=== PATIENT | female | born 1935 | race Caucasian/White ===

== ENCOUNTER 2018-06-21 05:59 | Inpatient (IN) | payer MEDICARE ==
[2018-06-21] MEDS ORDERED: Midazolam HCl 2 mg/2 ml Vial ONE (06:36)
[2018-06-21] MEDS ORDERED: Fentanyl 100 MCG/2 ML VIAL ONE (06:37)
[2018-06-21] MEDS ORDERED: Lidocaine 1% (PF) 30 ML VIAL ONE (06:42)
[2018-06-21 06:59] LABS: #Eosinphils 0.1 thou/uL (0.0-0.7); #Lymphocytes 1.9 thou/uL (1.20-3.40); #Monocytes 0.5 thou/uL (0.11-0.59); #Neutrophils 3.8 thou/uL (1.40-6.50); %Basophils 0.3 % (0.0-1.0); %Eosinophils 1.9 % (0.0-10.0); %Lymphocytes 29.3 % (21.0-51.0); %Monocytes 7.6 % (0.0-10.0); %Neutrophils 60.9 % (42.0-75.0); Hemoglobin 11.8 g/dL (12.0-16.0); Mean Corpuscular HGB CONC 33.5 g/dL (32.0-36.0); Mean Corpuscular Hemoglobin 29.4 pg (27.0-31.0); Mean Corpuscular Volume 87.9 fL (78.0-98.0); Mean Platelet Volume 8.2 fL (7.4-10.4); Platelet Count 155 thou/uL (130-400); RBC Distribution Width 12.7 % (11.5-14.5); Red Blood Cell (RBC) Count 4.01 mill/uL (4.20-5.40); White Blood Cell (WBC) Count 6.3 thou/uL (4.8-10.8)
[2018-06-21] MEDS ORDERED: Heparin 10,000 UNITS/1 ML VIAL ONE (07:15)
[2018-06-21 07:18] LABS: ALT (SGPT) 8 U/L (8-55); AST (SGOT) 14 U/L (5-34); Albumin 4.2 g/dL (3.4-4.8); Alkaline Phosphatase 50 U/L (40-150); Anion Gap 11 mmol/L (10-20); BUN (Urea Nitrogen) 18 mg/dL (9.8-20.1); Bilirubin, Total 1.9 mg/dL (0.2-1.2); Calc. Creatinine Clearance 42 mL/min (70-130); Calcium 9.6 mg/dL (7.8-10.44); Carbon Dioxide 21 mmol/L (23-31); Cardiac Risk 4.5 (Less than 4.5); Chloride 108 mmol/L (98-107); Cholesterol 200 mg/dl (< 200 Desired); Estimated GFR-MDRD 44; Globulin 2.8 g/dL (2.4-3.5); Glucose 131 mg/dL (83-110); HDL Cholesterol 44 mg/dL (>60 Neg Risk); LDL Cholesterol, Calculated 130 mg/dL; Potassium 4.1 mmol/L (3.5-5.1); Sodium 136 mmol/L (136-145); Triglycerides 131 mg/dL (Less than 150)
[2018-06-21] MEDS ORDERED: Protamine Sulfate 50 MG/5 ML VIAL ONE (08:03)
[2018-06-21] MEDS ORDERED: Acetaminophen/Codeine 30-300mg Tablet PO PRN ×2 (08:35)
[2018-06-21] MEDS ORDERED: Nitroglycerin 0.4 MG TAB (25 Tab Bottle) SL PRN (08:35)
[2018-06-21] MEDS ORDERED: traMADol HCl 50 MG TAB PO PRN (08:35)
[2018-06-21] MEDS ORDERED: Sodium Chloride 0.9% 200 ML IV SCH (08:45)
[2018-06-21] MEDS ORDERED: Aspirin 81 mg Enteric Coated Tablet PO SCH (09:00)
[2018-06-21] MEDS ORDERED: Iopamidol 370 76% 100 ML VIAL ONE (09:33)
[2018-06-21] MEDS ORDERED: Ondansetron HCl/PF 4 MG/2 ML Vial IVP PRN (12:41)
[2018-06-21] MEDS ORDERED: Ondansetron ODT 4 MG TAB PO PRN (12:41)
[2018-06-21] MEDS ORDERED: Diabetic Tussin 200 MG/10 ML UDCUP PO PRN (12:41)
[2018-06-21] MEDS ORDERED: Artificial Tears 18 DROP/0.9 ML EA EYE PRN (12:41)
[2018-06-21] MEDS ORDERED: Eucerin (Mineral Oil/Petrolatum,White) 30 gm Jar TOP PRN (12:41)
[2018-06-21] MEDS ORDERED: Loperamide HCl 2 MG CAP PO PRN (12:41)
[2018-06-21] MEDS ORDERED: Milk Of Magnesia 30 ML UDCUP PO PRN (12:41)
[2018-06-21] MEDS ORDERED: Mag-Al 1200 mg/1200 mg/30 ML UDCUP PO PRN (12:41)
[2018-06-21] MEDS ORDERED: HumaLOG 300 UNITS/3 ML VIAL SC PRN ×2 (12:41)
[2018-06-21] MEDS ORDERED: Sodium Chloride 0.65% Nasal 44 ML BOT EA NARE PRN (12:41)
[2018-06-21] MEDS ORDERED: Loratadine 10 MG TAB PO PRN (12:41)
[2018-06-21] MEDS ORDERED: hydrALAZINE 20 MG/ML VIAL SLOW IVP PRN (12:41)
[2018-06-21] MEDS ORDERED: Dextrose 5% in Water 1,000 ML IV PRN (12:41)
[2018-06-21] MEDS ORDERED: Chloraseptic Spray 180 ml Bottle PO PRN (12:41)
[2018-06-21] MEDS ORDERED: Acetaminophen 325 MG TAB PO PRN (12:41)
[2018-06-21] MEDS ORDERED: Temazepam 15 MG CAP PO PRN (12:41)
[2018-06-21] MEDS ORDERED: Communication Order-Pharmacy FS SCH (12:41)
[2018-06-21] MEDS ORDERED: Dextrose 50% Abboject 50 ML SYRINGE SLOW IVP PRN (12:41)
[2018-06-21] MEDS ORDERED: Senokot 8.6 MG TAB PO PRN (12:41)
[2018-06-21] MEDS ORDERED: Lorazepam 1 MG TAB PO PRN (12:41)
--- NOTE | 2018-06-21 12:50 | PDOC.PN ---
- Subjective Encounter Start Date: 06/21/18 Encounter Start Time: 13:00 -: old records requested/rev pt had cardiac cath earlier today, found with 3 vessel cad, now plan for CABG, pt is admitted in hospital, she has no chest pain now, Patient seen and examined. we are consulted for medical management - Objective Resuscitation Status: Resuscitation Status FULL:Full Resuscitation MAR Reviewed: Yes Vital Signs & Weight: Weight Weight 155 lb I&O: 06/20/18 06/21/18 06/22/18 06:59 06:59 06:59 Intake Total 250 Output Total 400 Balance -150 Result Diagrams: 06/21/18 06:45 06/21/18 06:45 Additional Labs: Accuchecks 06/21/18 06:47 POC Glucose 118 H EKG Reviewed by me: Yes Phys Exam - Physical Examination Constitutional: NAD HEENT: PERRLA, moist MMs, sclera anicteric Neck: no JVD, supple Respiratory: no wheezing, no rales, no rhonchi Cardiovascular: irregular SM+ Gastrointestinal: soft, non-tender, no distention, positive bowel sounds Musculoskeletal: no edema, pulses present Neurological: non-focal, normal sensation, moves all 4 limbs Psychiatric: normal affect, A&O x 3 Skin: no rash, normal turgor Dx/Plan (1) 3-vessel CAD Status: Acute Comment: cardiovascular surgery consulted and planned for CABG (2) Anemia, normocytic normochromic Code(s): D64.9 - ANEMIA, UNSPECIFIED Status: Chronic (3) Atrial fibrillation Code(s): I48.91 - UNSPECIFIED ATRIAL FIBRILLATION Status: Chronic Qualifiers: Atrial fibrillation type: chronic Qualified Code(s): I48.2 - Chronic atrial fibrillation Comment: Rate controlled, she was on Elliquis, that is on hold for anticipated CABG (4) Chronic anticoagulation Code(s): Z79.01 - PCAT INSTRUCTOR (CURRENT) USE OF ANTICOAGULANTS Status: Chronic Comment: Currently on hold for anticipated surgery (5) Diabetes type 2, controlled Code(s): E11.9 - TYPE 2 DIABETES MELLITUS WITHOUT COMPLICATIONS Status: Chronic Comment: will start her home dose of insulin and give 1800 kcal ADA diet, hyperglycemia protocol (6) Dyslipidemia Code(s): E78.5 - HYPERLIPIDEMIA, UNSPECIFIED Status: Chronic (7) H/O sick sinus syndrome Code(s): Z86.79 - PERSONAL HISTORY OF OTHER DISEASES OF THE CIRCULATORY SYSTEM Status: Chronic (8) Hypertension Code(s): I10 - ESSENTIAL (PRIMARY) HYPERTENSION Status: Chronic Comment: will resume her home meds (9) H/O: CVA (cerebrovascular accident) Code(s): Z86.73 - PRSNL HX OF TIA (TIA), AND CEREB INFRC W/O RESID DEFICITS Status: Chronic - Plan cont current plan of care * code status- pt is full code * CABG when feasible will defer to CT surgery * currently on optimum medical therapy for CAD * home medication reconciled * medication reviewed as below * symptomatic treatment * will repeat labs tomorrow * check UA. * chest xray * hyperglycemia protocol treatment Review of Systems - Review of Systems Eyes: negative: Pain, Vision Change, Conjunctivae Inflammation, Eyelid Inflammation, Redness, Other ENT: negative: Ear Pain, Ear Discharge, Nose Pain, Nose Discharge, Nose Congestion, Mouth Pain, Mouth Swelling, Throat Pain, Throat Swelling, Other Respiratory: negative: Cough, Dry, Shortness of Breath, Hemoptysis, SOB with Excertion, Pleuritic Pain, Sputum, Wheezing Cardiovascular: negative: chest pain, palpitations, orthopnea, paroxysmal nocturnal dyspnea, edema, light headedness, other Gastrointestinal: negative: Nausea, Vomiting, Abdominal Pain, Diarrhea, Constipation, Melena, Hematochezia, Other Genitourinary: negative: Dysuria, Frequency, Incontinence, Hematuria, Retention , Other Musculoskeletal: negative: Neck Pain, Shoulder Pain, Arm Pain, Back Pain, Hand Pain, Leg Pain, Foot Pain, Other Skin: negative: Rash, Lesions, Dangelo, Bruising, Other - Medications/Allergies Allergies/Adverse Reactions: Allergies Allergy/AdvReac Type Severity Reaction Status Date / Time codeine AdvReac Severe Nausea Verified 06/17/18 11:41 Medications: Current Medications Acetaminophen (Tylenol) 650 mg PO Q4H PRN PRN Reason: Headache/Fever or Mild Pain Acetaminophen/Codeine Phosphate (Tylenol #3) 1 tab PO Q4H PRN PRN Reason: Mild Pain (1-3) Acetaminophen/Codeine Phosphate (Tylenol #3) 2 tab PO Q4H PRN PRN Reason: Moderate Pain (4-6) Al Hydroxide/Mg Hydroxide (Maalox) 15 ml PO Q4H PRN PRN Reason: Heartburn or Indigestion Artificial Tears (Tears Naturale) 0 drop EA EYE PRN PRN PRN Reason: Dry Eyes Aspirin (Ecotrin) 81 mg PO DAILY [facility] Cefazolin Sodium (Cabg-Ancef) 2 gm SLOW IVP ONE [facility] Dextrose/Water (Dextrose 50%) 25 gm SLOW IVP PRN PRN PRN Reason: Hypoglycemia Famotidine (Pepcid) 20 mg PO BID [facility] Glucagon (Glucagon) 1 mg IM PRN PRN PRN Reason: Hypoglycemia Guaifenesin (Robitussin Sf) 200 mg PO Q4H PRN PRN Reason: Cough Hydralazine HCl (Apresoline) 10 mg SLOW IVP Q4H PRN PRN Reason: Systolic BP > 180 Sodium Chloride (Normal Saline 0.9%) 1,000 mls @ 125 mls/hr IV .Q8H [facility] Stop: 06/21/18 16:45 Sodium Chloride (Normal Saline 0.9%) 200 mls @ 0 mls/hr IV ONE [facility] Stop: 06/22/18 08:46 Dextrose/Water (D5w) 1,000 mls @ 0 mls/hr IV .Q0M PRN PRN Reason: Hypoglycemia Insulin Human Isoph/Insulin Regular (Humulin 70/30) units SC HS [facility] Insulin Human Isoph/Insulin Regular (Humulin 70/30) units SC DAILY [facility] Insulin Human Lispro (Humalog) 0 units SC .MODERATE SLIDING SC PRN PRN Reason: Moderate Correctional Scale Insulin Human Lispro (Humalog) 0 units SC .BEDTIME SLIDING SC PRN PRN Reason: Bedtime Correctional Scale Loperamide HCl (Imodium) 2 mg PO PRN PRN PRN Reason: Diarrhea/Loose Stools Loratadine (Claritin) 10 mg PO DAILYPRN PRN PRN Reason: Sinus Symptoms Lorazepam (Ativan) 1 mg PO Q4H PRN PRN Reason: Anxiety/Agitation Magnesium Hydroxide (Milk Of Magnesium) 30 ml PO DAILYPRN PRN PRN Reason: Constipation Mineral Oil/White Petrolatum (Eucerin Cream) 0 gm TOP BIDPRN PRN PRN Reason: Dry Skin Miscellaneous Information (Communication Order-Pharmacy) 1 each FS ONE ONE Stop: 06/21/18 12:42 Nitroglycerin (Nitrostat) 0.4 mg SL Q5MIN PRN PRN Reason: Chest Pain Non-Formulary Medication (Losartan Potassium [Cozaar]) 50 mg PO DAILY [facility] Ondansetron HCl (Zofran Odt) 4 mg PO Q6H PRN PRN Reason: Nausea/Vomiting Ondansetron HCl (Zofran) 4 mg IVP Q6H PRN PRN Reason: Nausea/Vomiting Phenol (Chloraseptic Lula 180 Ml Bot) 0 ml PO PRN PRN PRN Reason: Sore Throat Senna (Senokot) 2 tab PO HSPRN PRN PRN Reason: Constipation Sodium Chloride ([place]ana Nasal Lula 0.65%) 0 ml EA NARE QIDPRN PRN PRN Reason: Nasal Congestion Temazepam (Restoril) 15 mg PO HSPRN PRN PRN Reason: Insomnia Tramadol HCl (Ultram) 50 mg PO Q6H PRN PRN Reason: Moderate Pain (4-6)
--- NOTE | 2018-06-21 14:33 | HP ---
CONTINUATION After her urinary tract infection had been treated for 2 days, she underwent placement of a single ch meghana pacemaker via the left subclavian approach on November 29, 2015. Also, during that admission, car otid Doppler revealed no significant stenosis. Brain MRI only showed microvascular changes. She was discharged on Eliquis. She also was found to be hypercholesterolemic during that admission, but pre viously had been placed on Lipitor and developed muscle aches and weakness where she could not even w alk. She then returned to the office on December 23, 2015 with scant drainage from the pacemaker incision. Eleazar paredes grew methicillin-sensitive Staphylococcus aureus. She then was admitted and started on IV Jeremy ephin and vancomycin. She continued to have persistent inflammatory changes and ultimately, decision was made to remove the pacemaker which was performed on December 31, 2015. The incision was left open and packed with iodoform gauze. Six days after the pacemaker was removed, she was returned to the cardiac landscaping and groundskeeping laborer and a new pacemake r was placed via the right subclavian approach. Tyrx absorbable antibiotic envelope was used. She w as discharged with a wound VAC over the left subclavian area. She was placed on Keflex. She then re turned on January 16, 2016, for closure of the left subclavian incision. Since that time, she has done fairly well. She was admitted in August 2016 with a stroke. She dec ided to only take the Eliquis 5 mg daily instead of twice a day and then had a stroke with right-side d weakness and left middle cerebral artery stroke. Also in the office on followup, it was found that she developed cough and lisinopril was stopped. She was placed on losartan and the cough resolved. There has been no difficulty in controlling her cholesterol. As noted above, she had muscle aches wi th Lipitor. She was placed on pravastatin 20 mg and developed muscle aches again with this She cont inued on Zetia 10 mg daily, but ultimately stopped that due to the cough. Also, Livalo was prescribe d; however, she did not get that due to the cost. When she was seen for followup on March 10, she stated she has had an episode of chest pain for 10 min utes. There was difficulty getting much more history than that. It was felt that she needed to unde rgo nuclear scanning which revealed distal anterior and apical ischemia. She therefore is coming for cardiac catheterization. Risks of catheterization were discussed including , myocardial infarc tion, dye reaction, vascular injury, CVA, transfusion, limb loss, renal loss, etc. Also, risk of int ervention with PTCA and stent placement were discussed including , myocardial infarction, emerge nt CABG, restenosis, stent thrombosis, vessel perforation, etc. With the need for chronic anticoagul ation due to her atrial fibrillation, only a bare-metal stent would be placed. PAST MEDICAL HISTORY: Diabetes, hypertension, hypercholesterolemia, noncompliance with medicines. MEDICATIONS: Losartan 50 mg daily, insulin, Eliquis 5 b.i.d. ALLERGIES: None. OPERATIONS: Cholecystectomy, hysterectomy. Pacemaker placement with ultimately removal of that and then placement of a new pacemaker on the right side. SOCIAL HISTORY: She does not smoke or drink. REVIEW OF SYSTEMS: Ten-point review of systems otherwise unremarkable. PHYSICAL EXAMINATION: VITAL SIGNS: Blood pressure 128/70, pulse of 80. HEENT: PERRL. NECK: Supple. CHEST: Clear. CARDIAC: S1 and S2 are normal, without any S3, S4, or murmurs. ABDOMEN: Normal bowel sounds without tenderness. EXTREMITIES: Revealed no clubbing, cyanosis or edema. NEUROLOGIC: Grossly intact. SKIN: Warm and dry. LABORATORY: Pending. IMPRESSION: 1. Abnormal stress scan with distal anterior and apical ischemia. 2. Hypertension. 3. Diabetes. 4. Hypercholesterolemia, intolerant of Lipitor and pravastatin. She cannot afford Zetia or Livalo. 5. Status post pacemaker placement. She developed infection of her left-sided pacemaker, this was r emoved and right-sided pacemaker was placed. 6. Chronic atrial fibrillation. 7. History of middle cerebral artery cerebrovascular accident. She was not compliant with Eliquis, only taking 5 mg daily. PLAN: The patient will undergo cardiac catheterization. The risks have been discussed and she agree s to proceed. Attempts will be made to see if we can get her on an assistance program for the inject able medications for her hypercholesterolemia.
--- NOTE | 2018-06-21 14:33 | HP ---
HISTORY: Marlena Lam is an 82-year-old white female that I initially evaluated in the hospital in November 2015. She had a several-year history of atrial fibrillation which was diagnosed in [place]. At some point, she had undergone cardiac catheterization prior to that and she told me that this was normal. She was placed on Coumadin. She did not recall being placed on any other medication for rate control. Then, several years prior to the November 2015 hospitalization, she decided to quit taking the Coumadin. When she was hospitalized in 11/2015, she was complaining of episodes of increasing lightheadedness and dizziness. She did not have any syncope. Two days prior to admission, she was extremely dizzy and weak, that continued until the morning of admission. On admission, her blood pressure was 209/91, pulse of 73. She denied any vertigo. She was admitted and monitored, was found to have significant bradycardia with heart rates in the upper 30s at times. Apparently, she felt very lightheaded and weak during those episodes. Also, during sleep, she would have 2.3 second pauses. She denied any chest discomfort or shortness of breath. She was found to have urinary tract infection and was given a dose of Rocephin, which then was changed to Cipro b.i.d. Echocardiogram during that admission revealed ejection fraction of 50-55 % with aortic valvular fibrosis, moderate to severe mitral regurgitation, mild tricuspid regurgitation and mild pulmonic insufficiency. After her urinary tract infection had been treated for 2 days, she underwent placement of a single chamber pacemaker via the left subclavian approach on November 29, 2015. Also, during that admission, carotid Doppler revealed no significant stenosis. Brain MRI only showed microvascular changes. She was discharged on Eliquis. She also was found to be hypercholesterolemic during that admission, but previously had been placed on Lipitor and developed muscle aches and weakness where she could not even walk. She then returned to the office on December 23, 2015 with scant drainage from the pacemaker incision. Culture grew methicillin-sensitive Staphylococcus aureus. She then was admitted and started on IV Rocephin and vancomycin. She continued to have persistent inflammatory changes and ultimately the decision was made to remove the pacemaker which was performed on December 31, 2015. The incision was left open and packed with iodoform gauze. Six days after the pacemaker was removed, she was returned to the cardiac rn labor and delivery and a new pacemaker was placed via the right subclavian approach. Tyrx absorbable antibiotic envelope was used. She was discharged with a wound VAC over the left subclavian area. She was placed on Keflex. She then returned on January 16, 2016, for closure of the left subclavian incision. Since that time, she has done fairly well. She was admitted in August 2016 with a stroke. She decided to only take the Eliquis 5 mg daily instead of twice a day and then had a stroke with right-sided weakness and left middle cerebral artery stroke. Also in the office on followup, it was found that she developed cough and lisinopril was stopped. She was placed on losartan and the cough resolved. There has been difficulty in controlling her cholesterol. As noted above, she had muscle aches with Lipitor. She was placed on pravastatin 20 mg and developed muscle aches again with this She continued on Zetia 10 mg daily, but ultimately stopped that due to the cough. Also, Livalo was prescribed; however, she did not get that due to the cost. When she was seen for followup on March 10, she stated she has had an episode of chest pain for 10 minutes. There was difficulty getting much more history than that. It was felt that she needed to undergo nuclear scanning which revealed distal anterior and apical ischemia. She therefore is coming for cardiac catheterization. Risks of catheterization were discussed including , myocardial infarction, dye reaction, vascular injury, CVA, transfusion, limb loss, renal loss, etc. Also, risk of intervention with PTCA and stent placement were discussed including , myocardial infarction, emergent CABG, restenosis, stent thrombosis, vessel perforation, etc. With the need for chronic anticoagulation due to her atrial fibrillation, only a bare-metal stent would be placed. PAST MEDICAL HISTORY: Diabetes, hypertension, hypercholesterolemia, noncompliance with medicines. MEDICATIONS: Losartan 50 mg daily, insulin, Eliquis 5 b.i.d. ALLERGIES: None. OPERATIONS: Cholecystectomy, hysterectomy. Pacemaker placement with ultimately removal of that and then placement of a new pacemaker on the right side. SOCIAL HISTORY: She does not smoke or drink. REVIEW OF SYSTEMS: Ten-point review of systems otherwise unremarkable. PHYSICAL EXAMINATION: VITAL SIGNS: Blood pressure 128/70, pulse of 80. HEENT: PERRL. NECK: Supple. CHEST: Clear. CARDIAC: S1 and S2 are normal, without any S3, S4, or murmurs. ABDOMEN: Normal bowel sounds without tenderness. EXTREMITIES: Revealed no clubbing, cyanosis or edema. NEUROLOGIC: Grossly intact. SKIN: Warm and dry. LABORATORY: Pending. IMPRESSION: 1. Abnormal stress scan with distal anterior and apical ischemia. 2. Hypertension. 3. Diabetes. 4. Hypercholesterolemia, intolerant of Lipitor and pravastatin. She cannot afford Zetia or Livalo. 5. Status post pacemaker placement. She developed infection of her left-sided pacemaker, this was removed and right-sided pacemaker was placed. 6. Chronic atrial fibrillation. 7. History of middle cerebral artery cerebrovascular accident. She was not compliant with Eliquis, only taking 5 mg daily. PLAN: The patient will undergo cardiac catheterization. The risks have been discussed and she agrees to proceed. Attempts will be made to see if we can get her on an assistance program for the injectable medications for her hypercholesterolemia. ELIA
--- NOTE | 2018-06-21 15:39 | RAD ---
SUPINE PORTABLE CHEST ONE VIEW: HISTORY: An 82-year-old female for preoperative open heart surgery evaluation. COMPARISON: 01/16/2016 FINDINGS: Monitor leads overly the chest. Right-sided transvenous pacemaker. No confluent pneumonia, overt ed antonina, or pleural effusion. IMPRESSION: Right-sided transvenous pacemaker. No acute intrathoracic disease. Stable from prior study. POS: OFF
[2018-06-21 16:33] VITALS: BMI 26.0
--- NOTE | 2018-06-21 18:23 | CON ---
DATE OF CONSULTATION: 06/20/2018 REQUESTING PHYSICIAN: Bryce Herrera MD PRIMARY CARE PHYSICIAN: Saranya Fernandez MD CHIEF COMPLAINT: Chest pain. HISTORY OF PRESENT ILLNESS: The patient is an 82-year-old woman with chronic atrial fibrillation and diabetes mellitus. The patient about 2 years ago underwent pacemaker implantation that was complica love by a device infection requiring removal and replacement, and in that same period of time, she had a left hemispheric stroke manifested as dysarthria and right-sided facial paresthesias while she has minimal residual from that stroke. She and her family say that she has never really quite been the same, but she has still been able to do the bulk of care for her who has dementia. Other fam jose c members pitch in with a lot of the grocery shopping and major chores, but she is able to keep up with the physical demands of her 's care. Over the last perhaps 3 or 4 months, she has notice d that she gets tired more easily and gets short of breath. When this happens, she occasionally has some chest discomfort that radiates to her back associated with this. Over the last month, she has h ad several episodes of chest pain going to her back at rest. Stress testing showed anteroapical isch emia and cardiac catheterization today shows three-vessel coronary disease with essentially normal LV function. PAST MEDICAL HISTORY: Significant for hypertension; chronic atrial fibrillation that has been an iss ue since the ; diabetes mellitus, she says that she has been on insulin for several years. PAST SURGICAL HISTORY: She has had a cholecystectomy and a hysterectomy. HOME MEDICATIONS: Losartan 50 mg a day; Eliquis 5 mg b.i.d., which has been on hold now for 4 days; NPH insulin 20 units in the morning and 10 in the evening. A baby aspirin has now been added to her regimen. ALLERGIES: She reports a so-called allergy to CODEINE. When questioned, she says that she gets quit e nauseated and somewhat confused. FAMILY HISTORY: Significant for diabetes in her father. Her mother had congestive heart failure and of a heart attack. She has a brother with diabetes and coronary disease. Her children have no major illnesses. REVIEW OF SYSTEMS: Notable for residual numbness in the right side of her lower lip following her st roke from about 2 years ago. She had some blurred vision associated with that stroke, but she has no t had any transient eye, speech, facial, or extremity symptoms consistent with TIA since then. The o nly dyspnea that she has had is what has recently been associated with exertion. She has no claudica tion symptoms. PHYSICAL EXAMINATION: GENERAL: She is a fairly fit-appearing woman who looks her stated age of just shy of 83 years. She has what appeared to be dentures. She stands 5 feet 6 inches. Weight is 155 pounds. She has no mariely thelasma. VITAL SIGNS: Her heart rate was paced 60, blood pressure 160/63. NECK: She has no JVD, no carotid bruits. CHEST: Clear to auscultation. CARDIOVASCULAR: She has a regular rate and rhythm. She has a pacemaker generator palpable in the [facility] upper chest and a well-healed surgical scar associated with it and from her old pacemaker site on the left side. ABDOMEN: Soft and nontender with no bruits. EXTREMITIES: She has palpable femoral pulses with no bruits. Palpable dorsalis pedis pulses. I was not able to readily appreciate posterior tibials. She has extensive spider-type varicosities over h er feet, ankles, and lower legs, but no obvious bulging varicosities. She has no clubbing, cyanosis, or edema. NEUROLOGIC: Grossly nonfocal on motor. LABORATORY DATA: White count of 6.3, hemoglobin 11.8, hematocrit 35.3, platelets 155,000. She has n ormal electrolytes with glucose of 131, BUN 18, creatinine 1.18. Bilirubin is 1.9, otherwise LFTs ar e normal. Calcium is 9.6, protein 7, albumin 4.2, triglycerides 131, cholesterol 200, LDL 130, HDL 4 4. She had a hemoglobin A1c in March of this year, was 5.9. Around the time of her stroke in 08/2016 , she had carotid studies that showed minimal plaque with right-sided internal carotid velocities of 94, 140, and 116 and common of 75, 83, and 73 for a ratio of 1.69; and left-sided internal carotid ve locities of 61, 62, and 85 with common of 75, 67, and 79 for a ratio of 1.07. Her cardiac catheteriz ation shows a right-dominant system with fairly well-developed posterolateral system with perhaps a 4 0%-50% lesion proximally at about the level of an atrial branch. She has a long 60% or so lesion in the distal right that does not appear to compromise the crux. She has some luminal irregularity in t he distal left main. She has a diagonal that runs in a ramus-type distribution that comes off at abo ut the level of the first septal manufacturing project manager that is a long lesion at 70%-80%. She has diffusely dise ased small second and third diagonals and a good quality fourth diagonal. Most of the LAD in its mid and distal portion is reasonably good sized and good quality, but she has about an 80% lesion a tana le bit beyond the first septal manufacturing project manager and a more modest lesion little beyond the small third diag onal. LVEF is around 60%. Aortic pressure was 127/44 with a mean of 78. LV pressure was 125/1 with an EDP of 6. IMPRESSION AND PLAN: Three-vessel coronary disease with good left ventricular function in an elderly diabetic woman with class 4 angina. While her LAD disease is probably not quite proximal enough for CABG to confer a survival advantage, the diffuse nature of her LAD disease clearly makes it suboptim al for PCI and the patient does not appear to be of much elevated risk for surgery and should get exc ellent symptomatic relief with surgical revascularization. I have explained this to her and have diana ked about some of the issues pertaining to her anticoagulation and potential for rebound hypercoagula bility, and I have offered to schedule her for tomorrow. She has some issues about her who i s going to help take care of him during her convalescence. She is going to talk things over with her family, and I will check back with her later today about final plans on scheduling surgery.
[2018-06-21] MEDS: Sodium Chloride 0.9% 1,000 ML IV SCH ×2 (18:26)
[2018-06-21 20:01] LABS: Bilirubin Negative (Negative); Blood, Urine Negative (Negative); Clarity CLOUDY (Clear); Glucose, Urine (Dipstick) Negative (Negative); Leukocyte Moderate (Negative); Nitrite Positive (Negative); Protein, Urine (Dipstick) Negative (Neg-Trace); Specific Gravity, Urine 1.023 (1.002-1.036); Urobilinogen 0.2 mg/dL (0.2-1.0); pH, Urine 5.5 (5.0-9.0)
[2018-06-21 20:02] LABS: Bacteria/HPF 2+ HPF (None Seen); Hyaline Casts/LPF 0-3 HYALINE CAST LPF (0-3 Hyaline); RBC/HPF 0-3 HPF (0-3); Squamous Epithelial None Seen HPF (0-3)
[2018-06-21] MEDS ORDERED: Atorvastatin Calcium 40 MG TAB PO SCH (21:00)
[2018-06-21] MEDS ORDERED: Insulin NPH/Reg Insulin Hm 300 UNITS/3 ML VIAL SC SCH (21:00)
[2018-06-21] MEDS ORDERED: Famotidine 20 MG TAB PO SCH (21:00)
[2018-06-22 05:53] LABS: #Eosinphils 0.1 thou/uL (0.0-0.7); #Lymphocytes 1.2 thou/uL (1.20-3.40); #Monocytes 0.3 thou/uL (0.11-0.59); #Neutrophils 2.9 thou/uL (1.40-6.50); %Basophils 0.9 % (0.0-1.0); %Eosinophils 2.7 % (0.0-10.0); %Lymphocytes 25.2 % (21.0-51.0); %Monocytes 7.4 % (0.0-10.0); %Neutrophils 63.8 % (42.0-75.0); Hemoglobin 11.1 g/dL (12.0-16.0); Mean Corpuscular HGB CONC 32.9 g/dL (32.0-36.0); Mean Corpuscular Hemoglobin 28.8 pg (27.0-31.0); Mean Corpuscular Volume 87.5 fL (78.0-98.0); Mean Platelet Volume 8.1 fL (7.4-10.4); Platelet Count 131 thou/uL (130-400); RBC Distribution Width 12.5 % (11.5-14.5); Red Blood Cell (RBC) Count 3.87 mill/uL (4.20-5.40); White Blood Cell (WBC) Count 4.6 thou/uL (4.8-10.8)
[2018-06-22 05:59] LABS: INR-International Normal Ratio 1.1; PTT 30.3 SEC (22.9-36.1); Prothrombin Time 14.1 SEC (12.0-14.7)
[2018-06-22 06:13] LABS: Anion Gap 11 mmol/L (10-20); BUN (Urea Nitrogen) 11 mg/dL (9.8-20.1); Calc. Creatinine Clearance 55 mL/min (70-130); Carbon Dioxide 21 mmol/L (23-31); Chloride 111 mmol/L (98-107); Estimated GFR-MDRD 59; Glucose 108 mg/dL (83-110); Potassium 3.9 mmol/L (3.5-5.1); Sodium 139 mmol/L (136-145)
[2018-06-22] MEDS: cefTRIAXone\\ROCEPHIN 1 GM in Sodium Chloride 0.9% 100 ML IVPB SCH (08:19)
[2018-06-22] MEDS ORDERED: Losartan 25 MG TAB PO SCH (09:00)
[2018-06-22] MEDS ORDERED: Insulin NPH/Reg Insulin Hm 300 UNITS/3 ML VIAL SC SCH (09:00)
[2018-06-22] MEDS ORDERED: Heparin 10,000 UNITS/1 ML VIAL 30,000 UNITS in Sodium Chloride 0.9% 1,000 ML FS SCH (09:00)
[2018-06-22] MEDS ORDERED: CEFAZOLIN/Water 2 GM/20 ML SYRINGE ONE (09:13)
[2018-06-22] MEDS ORDERED: Insulin Regular 300 UNITS/3 ML VIAL ONE (10:08)
[2018-06-22] MEDS ORDERED: Fentanyl 250 MCG/5 ML VIAL ONE (10:08)
[2018-06-22] MEDS ORDERED: Midazolam HCl 5 mg/5 ml Vial ONE (10:08)
--- NOTE | 2018-06-22 10:17 | PDOC.PN ---
- Subjective Encounter Start Date: 06/22/18 Encounter Start Time: 06:30 Patient seen and examined. No new complaints. No overnight events - Objective Resuscitation Status: Resuscitation Status FULL:Full Resuscitation MAR Reviewed: Yes Vital Signs & Weight: Vital Signs (12 hours) Temp Pulse Resp BP Pulse Ox 06/22/18 07:58 98.1 F 69 12 155/68 H 98 06/22/18 03:46 98.5 F 59 L 19 138/63 97 06/22/18 00:00 98.2 F 60 17 134/63 96 Weight Weight 154 lb 14.4 oz I&O: 06/21/18 06/22/18 06/23/18 06:59 06:59 06:59 Intake Total 310 Output Total 700 Balance -390 Result Diagrams: 06/22/18 05:12 06/22/18 05:12 Additional Labs: Accuchecks 06/22/18 06/21/18 05:40 20:21 POC Glucose 115 H 129 H EKG Reviewed by me: Yes (nsr) Phys Exam - Physical Examination Constitutional: NAD HEENT: PERRLA, moist MMs, sclera anicteric Neck: no JVD, supple Respiratory: no wheezing, no rales, no rhonchi Cardiovascular: RRR, no significant murmur, no rub Gastrointestinal: soft, non-tender, no distention, positive bowel sounds Musculoskeletal: no edema, pulses present Neurological: non-focal, normal sensation, moves all 4 limbs Lymphatic: no nodes Psychiatric: normal affect, A&O x 3 Skin: no rash, normal turgor Dx/Plan (1) 3-vessel CAD Status: Acute Comment: (2) Anemia, normocytic normochromic Code(s): D64.9 - ANEMIA, UNSPECIFIED Status: Chronic (3) Atrial fibrillation Code(s): I48.91 - UNSPECIFIED ATRIAL FIBRILLATION Status: Chronic Qualifiers: Atrial fibrillation type: chronic Qualified Code(s): I48.2 - Chronic atrial fibrillation Comment: Rate controlled, she was on Elliquis, that is on hold for anticipated CABG (4) Chronic anticoagulation Code(s): Z79.01 - DETENTION (CURRENT) USE OF ANTICOAGULANTS Status: Chronic Comment: Currently on hold for anticipated surgery (5) Diabetes type 2, controlled Code(s): E11.9 - TYPE 2 DIABETES MELLITUS WITHOUT COMPLICATIONS Status: Chronic Comment: will start her home dose of insulin and give 1800 kcal ADA diet, hyperglycemia protocol (6) Dyslipidemia Code(s): E78.5 - HYPERLIPIDEMIA, UNSPECIFIED Status: Chronic (7) H/O sick sinus syndrome Code(s): Z86.79 - PERSONAL HISTORY OF OTHER DISEASES OF THE CIRCULATORY SYSTEM Status: Chronic (8) Hypertension Code(s): I10 - ESSENTIAL (PRIMARY) HYPERTENSION Status: Chronic Comment: will resume her home meds (9) H/O: CVA (cerebrovascular accident) Code(s): Z86.73 - PRSNL HX OF TIA (TIA), AND CEREB INFRC W/O RESID DEFICITS Status: Chronic (10) UTI (urinary tract infection) Status: Acute - Plan cont current plan of care, continue antibiotics * medication reviewed as below * symptomatic treatment * today plan for CABG * after CABG continue post cabg treatment protocol * will send urine culture and start rocephin. Review of Systems - Review of Systems ENT: negative: Ear Pain, Ear Discharge, Nose Pain, Nose Discharge, Nose Congestion, Mouth Pain, Mouth Swelling, Throat Pain, Throat Swelling, Other Respiratory: negative: Cough, Dry, Shortness of Breath, Hemoptysis, SOB with Excertion, Pleuritic Pain, Sputum, Wheezing Cardiovascular: negative: chest pain, palpitations, orthopnea, paroxysmal nocturnal dyspnea, edema, light headedness, other Gastrointestinal: negative: Nausea, Vomiting, Abdominal Pain, Diarrhea, Constipation, Melena, Hematochezia, Other Genitourinary: negative: Dysuria, Frequency, Incontinence, Hematuria, Retention , Other Musculoskeletal: negative: Neck Pain, Shoulder Pain, Arm Pain, Back Pain, Hand Pain, Leg Pain, Foot Pain, Other Skin: negative: Rash, Lesions, Dangelo, Bruising, Other - Medications/Allergies Allergies/Adverse Reactions: Allergies Allergy/AdvReac Type Severity Reaction Status Date / Time codeine AdvReac Severe Nausea Verified 06/17/18 11:41 Medications: Current Medications Cefazolin Sodium (Cabg-Ancef) 2 gm SLOW IVP 0830 [facility] Stop: 06/22/18 21:00 Ceftriaxone Sodium 1 gm/ (Sodium Chloride) 100 mls @ 200 mls/hr IVPB Q24HR [facility]STIDES Last Admin: 06/22/18 08:19 Dose: 100 mls Heparin Sodium (Porcine) 30, (000 units/ Sodium Chloride) 1,003 mls @ 0 mls/hr FS WILLCALL ARISTIDES Losartan Potassium (Cozaar) 50 mg PO DAILY ARISTIDES Last Admin: 06/22/18 05:42 Dose: 50 mg Miscellaneous Information (Communication Order-Pharmacy) 1 each FS [facility] Stop: 06/22/18 12:00
[2018-06-22] MEDS ORDERED: Acetaminophen 325 MG TAB PO PRN (10:59)
[2018-06-22] MEDS ORDERED: Promethazine HCl 25 MG/ML VIAL IM PRN (10:59)
[2018-06-22] MEDS ORDERED: Guaifenesin DM 100-10/5 ML UDCUP PO PRN (10:59)
[2018-06-22] MEDS ORDERED: Dextrose 5% in Water 1,000 ML IV PRN ×2 (10:59→12:02)
[2018-06-22] MEDS ORDERED: Post-Op Insulin Drip Protocol IVPB ONE (10:59)
[2018-06-22] MEDS ORDERED: niCARdipine HCl 25 MG in Sodium Chloride 0.9% 250 ML 240 ML IVPB PRN (10:59)
[2018-06-22] MEDS ORDERED: Ondansetron HCl/PF 4 MG/2 ML Vial IVP PRN (10:59)
[2018-06-22] MEDS ORDERED: Fentanyl 100 MCG/2 ML VIAL SLOW IVP PRN ×2 (10:59)
[2018-06-22] MEDS ORDERED: Bisacodyl 10 MG SUPP PR PRN (10:59)
[2018-06-22] MEDS ORDERED: Norepinephrine 8 MG/0.9% NS 250 ML IVPB PRN (10:59)
[2018-06-22] MEDS ORDERED: Dextrose 50% Abboject 50 ML SYRINGE SLOW IVP PRN ×2 (10:59→12:02)
[2018-06-22] MEDS ORDERED: Potassium Chloride 20 MEQ/100 ML PREMIX BAG IVPB PRN (10:59)
[2018-06-22] MEDS ORDERED: hydrALAZINE 20 MG/ML VIAL SLOW IVP PRN (10:59)
[2018-06-22] MEDS ORDERED: Bisacodyl 5 MG TAB PO PRN (10:59)
[2018-06-22] MEDS ORDERED: HYDROcodone/Acetaminophen 5/325 mg Tablet PO PRN (10:59)
[2018-06-22] MEDS ORDERED: Mag-Al 1200 mg/1200 mg/30 ML UDCUP PO PRN (10:59)
[2018-06-22] MEDS ORDERED: Hetastarch 6% 500 ML 500 ML IVPB PRN (10:59)
[2018-06-22] MEDS ORDERED: Nitroglycerin 50 MG/250 ML BOT 250 ML IVPB PRN (10:59)
[2018-06-22] MEDS ORDERED: Albumin 5% 500 ML ONE (12:20)
[2018-06-22] MEDS ORDERED: Rocuronium Bromide 50 MG/5 ML VIAL ONE (12:29)
[2018-06-22] MEDS ORDERED: Phenylephrine HCL 10 MG/ML VIAL ONE (12:29)
[2018-06-22 15:43] LABS: Actual Bicarbonate (HCO3a) 21.5 mEq/L (22-28); Base Excess (BEa) -2.4 mEq/L (-2.0 to +3.0); CO2 Tension 33.4 mmHg (35.0-45.0); Calcium, Ionized 1.14 mmol/L (1.12-1.30); Carboxyhemoglobin (COHb) 0.7 gm% (0.0-3.0); Hemoglobin (Hb) 9.3 g/dL (12.0-16.0); O2 Tension (PaO2) 151.3 mmHg (> 60.0); Potassium - ABG Lab 3.83 mmol/L (3.70-5.30); pH, Arterial 7.43 (7.35-7.45)
[2018-06-22] MEDS: Sodium Chloride 0.9% 1,000 ML IV SCH (15:50)
[2018-06-22 15:56] LABS: Hemoglobin 8.9 g/dL (12.0-16.0); Mean Corpuscular HGB CONC 33.4 g/dL (32.0-36.0); Mean Corpuscular Hemoglobin 29.2 pg (27.0-31.0); Mean Corpuscular Volume 87.5 fL (78.0-98.0); Platelet Count 121 thou/uL (130-400); RBC Distribution Width 12.5 % (11.5-14.5); Red Blood Cell (RBC) Count 3.04 mill/uL (4.20-5.40); White Blood Cell (WBC) Count 17.4 thou/uL (4.8-10.8)
[2018-06-22 15:58] LABS: Puncture Site ALINE
[2018-06-22 16:05] LABS: INR-International Normal Ratio 1.5; PTT 33.9 SEC (22.9-36.1); Prothrombin Time 17.9 SEC (12.0-14.7)
[2018-06-22 16:10] LABS: Anion Gap 10 mmol/L (10-20); BUN (Urea Nitrogen) 10 mg/dL (9.8-20.1); Calc. Creatinine Clearance 62 mL/min (70-130); Calcium 8.3 mg/dL (7.8-10.44); Carbon Dioxide 21 mmol/L (23-31); Chloride 116 mmol/L (98-107); Estimated GFR-MDRD 69; Glucose 135 mg/dL (83-110); Potassium 3.9 mmol/L (3.5-5.1); Sodium 143 mmol/L (136-145)
--- NOTE | 2018-06-22 16:13 | RAD ---
SINGLE VIEW OF THE CHEST: Comparison: 06-21-18 History: Status post open heart surgery. FINDINGS: Single view of the chest shows an enlarged cardiomediastinal silhouette. There is an endotracheal tub e with its tip just above the ernestina. Patient is status post sternotomy. A left subclavian central ve nous catheter is seen with its tip in the superior vena cava. There is a pacemaker, unchanged in posi tion. A left chest tube and mediastinal drain is seen. There is a veil like opacity in the left thora x which likely represent a layering pleural effusion. No pneumothorax is seen. IMPRESSION: Slightly low lying endotracheal tube. This should be withdrawn approximately 1 cm. Code T POS: [facility]
[2018-06-22 16:27] LABS: #Eosinphils 0.1 thou/uL (0.0-0.7); #Lymphocytes 1.5 thou/uL (1.20-3.40); #Monocytes 1.1 thou/uL (0.11-0.59); #Neutrophils 14.7 thou/uL (1.40-6.50); %Basophils 0.2 % (0.0-1.0); %Eosinophils 0.3 % (0.0-10.0); %Lymphocytes 8.8 % (21.0-51.0); %Monocytes 6.4 % (0.0-10.0); %Neutrophils 84.3 % (42.0-75.0)
[2018-06-22] MEDS ORDERED: Aminocaproic Acid 5 GM/20 ML VIAL ONE (17:17)
[2018-06-22] MEDS ORDERED: Magnesium 5 GM/10 ML VIAL ONE (17:17)
[2018-06-22] MEDS ORDERED: Thrombin 5000 UNITS/5 ML VIAL ONE (17:17)
[2018-06-22] MEDS ORDERED: ePHEDrine/0.9% NaCl/PF SYRINGE 50 mg/10 ml ONE (17:17)
[2018-06-22] MEDS ORDERED: PROPOFOL 200 MG/20 ML VIAL ONE (17:17)
[2018-06-22] MEDS ORDERED: Lidocaine 2% PF 100 mg/5 ml Syringe ONE (17:17)
[2018-06-22] MEDS ORDERED: Heparin 30,000 units/30 ml VIAL ONE (17:17)
[2018-06-22] MEDS ORDERED: Calcium Chloride 1 GM/10 ML Abboject SYRINGE ONE (17:17)
[2018-06-22] MEDS ORDERED: Protamine Sulfate 250 MG/25 ML VIAL ONE (17:17)
[2018-06-22] MEDS ORDERED: Cardioplegic Soln 1,000 ML BAG ONE (17:17)
[2018-06-22] MEDS ORDERED: Potassium Chloride 60 MEQ/30 ML VIAL ONE (17:17)
[2018-06-22] MEDS ORDERED: Heparin 5,000 UNITS/ML VIAL ONE (17:17)
[2018-06-22] MEDS ORDERED: Sodium Bicarb 50 MEQ/50 ML VIAL ONE (17:17)
[2018-06-22] MEDS ORDERED: PHENYLEPHRINE-NS 100 MCG/ML 10 ML SYRINGE ONE (17:17)
[2018-06-22] MEDS ORDERED: Mannitol 12.5 GM/50 ML ONE (17:17)
[2018-06-22] MEDS ORDERED: Papaverine 60 MG/2 ML VIAL ONE (17:17)
[2018-06-22 19:26] LABS: Actual Bicarbonate (HCO3a) 17.2 mEq/L (22-28); Base Excess (BEa) -6.4 mEq/L (-2.0 to +3.0); CO2 Tension 27.3 mmHg (35.0-45.0); Calcium, Ionized 1.11 mmol/L (1.12-1.30); Carboxyhemoglobin (COHb) 0.8 gm% (0.0-3.0); Hemoglobin (Hb) 9.1 g/dL (12.0-16.0); O2 Tension (PaO2) 116.7 mmHg (> 60.0); Potassium - ABG Lab 4.22 mmol/L (3.70-5.30); pH, Arterial 7.42 (7.35-7.45)
[2018-06-22 19:27] LABS: Puncture Site ALINE
[2018-06-22 19:28] LABS: ALV-art Gradient 70.205 (0-20)
--- NOTE | 2018-06-22 19:29 | OP ---
DATE OF PROCEDURE: 06/22/2018 OPERATION PERFORMED: Coronary artery bypass grafting x4, left internal mammary artery to the LAD and reverse greater saphenous vein graft from the aorta to the PDA, from the aorta to the obtuse margina l and from the OM graft to the first diagonal, ligation of left atrial appendage. PREOPERATIVE DIAGNOSES: Coronary artery disease and chronic atrial fibrillation. POSTOPERATIVE DIAGNOSES: Coronary artery disease and chronic atrial fibrillation. SURGEON: Sravan Hare MD. BREEDER SERVICE TECHNICIAN: Zac Kam M.D. ANESTHESIA: General endotracheal anesthesia. INDICATIONS: The patient is an 82-year-old diabetic woman with chronic atrial fibrillation. She is over the last few months been having decreasing exercise tolerance and some dyspnea on exertion that occasionally associated with chest discomfort. More recently, she has had some episodes of more typi aletha angina even at rest. Stress testing suggested anteroapical ischemia and cardiac catheterization demonstrated a right dominant system with extensive disease in the LAD diagonal system that diseased with diminutive circumflex system, more modest disease in the distal right coronary and good LV funct ion. She is now taken to the operating room for surgical revascularization. FINDINGS: Pump time 110 minutes, crossclamp time initially was 48 minutes and a followup cross clamp time of 17 minutes to redo the LAD anastomosis for a total of 65 minutes of crossclamp time. The ma mmary was slightly small, but had excellent flow. The utilized saphenous vein was of good quality. The LAD was about 1.5 mm vessel where it was exposed in the epicardial fat. The diagonal is about 1 to 1.5 mm, the OM about 1 mm and the PDA about 1.5-2 mm, but fairly extensive disease proximally. NARRATIVE REPORT: After informed consent was obtained, the patient was taken to the operating room a nd placed in the supine position on the operating table. After induction of general anesthesia, the patient was placed in Trendelenburg and her left upper chest was prepped and draped in sterile fashio n. A triple-lumen central line kit was used to place a left subclavian line by the [employer] ue. All three ports easily aspirated and flushed. The line was secured. Ultrasonographic examinati on of the legs was undertaken. The vein in the left thigh appeared to be a dual system vein for much of the length of the thigh with fairly good size vein at the knee and in the proximal thigh, but to rather small veins in the mid-thigh. The vein in the right thigh appeared to be of better and more u niform size. The patient's torso, groins and lower extremities were then prepped and draped in steri le fashion. Greater saphenous vein was exposed just above the right knee and endoscopically harveste d from a groin to about a handbreadth below the knee where the vein branched into 2 relatively small branches. The vein was prepared for use of the graft and the harvest sites were closed in layers of subcutaneous and subcuticular Vicryl. A median sternotomy was performed. The right pleura were open ed fairly widely during performance of the sternotomy. Jose retractor was put into place to develo p the plane between the two pleural surfaces in the midline and then 3-0 Vicryl was used to repair th at in the right pleura. The left pleura was far too thin to make an extrapleural harvest of the mamm carlie feasible. The left pleura were opened widely to allow for harvesting of the left mammary from th e level of the xiphoid to the level of the subclavian vein. The patient was heparinized and the mamm carlie was ligated and divided distally. There was excellent flow through the mammary even though dista lly it was rather small. Papaverine solution was instilled intraluminally and the mammary bed inspec love for hemostasis. Retractors were placed the Singletary retractor. The pericardium was opened and mars upialized. They were palpated and was soft. A double concentric pursestring of 2-0 Ethibond was raquel sanna in the ascending aorta at the base of the arch and a single pursestring was placed in the right a trial appendage. Aortic and venous cannulae were inserted and secured by the pursestrings. Cardiopu lmonary bypass was instituted and the patient was systemically cooled. The heart was examined and th e vessels to be bypassed were identified. A longitudinal slit was made in the pericardium anterior t o the left phrenic nerve through which the mammary pedicle could be passed. The plane between the ao rta and the pulmonary artery was developed and aortic cross clamp was applied and cardioplegia was ad ministered through an aortic root needle. When arrest been achieved, attention was turned to the lef t atrial appendage. A 3-0 Prolene suture was run in two layers of horizontal mattress, stitches at t he base of the appendage to effect ligation of it and then attention was turned to the PDA. It was e xposed near the crux, but had to be followed out of 4-5 cm where it became soft enough vessel to open . It was opened with a Cocolalla blade and Buckner scissors and reverse greater saphenous vein was judy stomosed their end-to-side with running 6-0 Prolene suture. The anastomosis was tested by flushing c old cardioplegic down the graft. Attention was then turned to the obtuse marginal and to the first d iagonal which were each opened and grafted in a similar fashion. Attention was then turned to the LA D. The very distal LAD was a tiny vessel. The LAD was identified more proximally in its mid portion within the epicardial fat, it was opened and the mammary was anastomosed to it with running 7-0 Prol pepe. The mammary pedicle was tacked to the epicardium. The aortic crossclamp was replaced with part ial occluding clamp in the process of retrieving the OM graft to decide where on the aorta to make th e aortotomy for its proximal anastomosis. The mammary anastomosis avulsed control on the mammary ped icle was re-achieved with a bulldog and the partial occluding clamp was removed. Crossclamp was repl aced and cardioplegia administered. Arrest was achieved at around 500 mL of cardioplegia and an claire tional 250 mL after arrest was given and root needle placed back on suction. Upon inspecting the LAD anastomosis, it could be appreciated that the anastomosis itself did not avulsed, but rather the thong kylie per se tore into near the anastomosis. An 11 blade scalpel was used to take down that anastomos is. The LAD did not require any freshening. The mammary pedicle was pie crusted to get additional l ength and it was respatulated to get to fresh mammary and the anastomosis was redone and the mammary pedicle tacked back to the epicardium. The crossclamp was replaced with a partial occluding clamp an d aortotomy was made in the ascending aorta with a scalpel and punch. The PDA graft was anastomosed to the more proximal aortotomy and the OM graft to the more distal aortotomy. The partial occluding clamp was removed and a bulldog was placed on the OM graft proximally. A point on the OM graft was s elected to allow for excision of the small portion of the vein that was part of the diagonal graft. The OM graft was opened and the diagonal graft was anastomosed there with running 7-0 Prolene. The b ulldog was removed and the vein grafts deaired. The anastomoses were inspected for hemostasis. A le ft pleural drain and a posterior pericardial drain were brought out through separate incisions and se cured with suture. Right ventricular epicardial pacing wires were placed. The patient was then easi ly from cardiopulmonary bypass. The aortic and venous cannula removed and the pursestring secured. Protamine was administered when hemostasis was adequate. The mediastinal fat was tacked ba ck together to cover up the aorta and proximal portions of the vein graft. GPS was applied to the st ernal edges along with vancomycin paste. The sternum was reapproximated with #7 stainless steel wire s. The subcutaneous tissue was irrigated and additional GPS applied and the fascia closed over the w ires with Additional GPS was applied and the subcutaneous tissue was reapproximated. The skin was cl osed with 4-0 Vicryl subcuticular suture. The wounds were dressed. The patient taken to the intensi ve care unit in stable condition.
[2018-06-22 20:03] LABS: Hemoglobin 8.7 g/dL (12.0-16.0)
[2018-06-22] MEDS: Famotidine/PF 20 mg/2ml Vial SLOW IVP SCH (20:05)
[2018-06-22 20:15] LABS: Potassium 4.2 mmol/L (3.5-5.1)
[2018-06-23] MEDS: HYDROcodone/Acetaminophen 5/325 mg Tablet PO PRN ×2 (00:19→05:11)
[2018-06-23] MEDS: Sodium Chloride 0.9% 1,000 ML IV SCH ×3 (00:20→20:58)
[2018-06-23 04:41] LABS: #Lymphocytes 0.5 thou/uL (1.20-3.40); #Monocytes 0.7 thou/uL (0.11-0.59); #Neutrophils 9.4 thou/uL (1.40-6.50); %Basophils 0.2 % (0.0-1.0); %Eosinophils 0.2 % (0.0-10.0); %Lymphocytes 4.9 % (21.0-51.0); %Monocytes 6.4 % (0.0-10.0); %Neutrophils 88.4 % (42.0-75.0); Hemoglobin 8.2 g/dL (12.0-16.0); Mean Corpuscular Hemoglobin 29.4 pg (27.0-31.0); Mean Corpuscular Volume 89.1 fL (78.0-98.0); Mean Platelet Volume 8.6 fL (7.4-10.4); Platelet Count 113 thou/uL (130-400); Red Blood Cell (RBC) Count 2.78 mill/uL (4.20-5.40); White Blood Cell (WBC) Count 10.6 thou/uL (4.8-10.8)
[2018-06-23 05:16] LABS: Anion Gap 14 mmol/L (10-20); BUN (Urea Nitrogen) 12 mg/dL (9.8-20.1); Calc. Creatinine Clearance 54 mL/min (70-130); Calcium 8.7 mg/dL (7.8-10.44); Carbon Dioxide 18 mmol/L (23-31); Chloride 116 mmol/L (98-107); Estimated GFR-MDRD 58; Glucose 150 mg/dL (83-110); Potassium 4.7 mmol/L (3.5-5.1); Sodium 143 mmol/L (136-145)
[2018-06-23] MEDS ORDERED: Furosemide 40 MG/4 ML VIAL SLOW IVP SCH (07:00)
--- NOTE | 2018-06-23 08:33 | RAD ---
PORTABLE CHEST: Date: 06/23/18 HISTORY: Postop open heart surgery. COMPARISON: Prior day's exam. FINDINGS: Endotracheal tube has been removed. Midline and left-sided chest tubes remain in position. Left subcl ellen line is unchanged. Lungs remain clear of infiltrates. IMPRESSION: Interval removal of the endotracheal tube, otherwise stable exam. POS: [facility]
[2018-06-23] MEDS: cefTRIAXone\\ROCEPHIN 1 GM in Sodium Chloride 0.9% 100 ML IVPB SCH (09:24)
[2018-06-23] MEDS: Famotidine/PF 20 mg/2ml Vial SLOW IVP SCH ×2 (09:24→20:47)
--- NOTE | 2018-06-23 09:53 | PDOC.PN ---
- Subjective Encounter Start Date: 06/23/18 Encounter Start Time: 08:40 pt is getting 1 unit PRBC, she was feeling weak and lightheaded this morning daughter was present bedside chest tube in place - Objective Resuscitation Status: Resuscitation Status FULL:Full Resuscitation MAR Reviewed: Yes Vital Signs & Weight: Vital Signs (12 hours) Temp Pulse Resp BP Pulse Ox 06/23/18 09:30 97.6 F 69 16 147/80 H 100 06/23/18 08:15 97.7 F 71 16 128/71 100 06/23/18 08:00 97.8 F 69 18 126/63 100 Weight Weight 164 lb 14.492 oz Most Recent Monitor Data Heart Rate from ECG 71 NIBP 145/70 NIBP BP-Mean 95 Respiration from ECG 16 SpO2 100 I&O: 06/22/18 06/23/18 06/24/18 06:59 06:59 06:59 Intake Total 310 1795.6 590 Output Total 700 1847 65 Balance -390 -51.4 525 Result Diagrams: 06/23/18 04:20 06/23/18 04:20 Additional Labs: Accuchecks 06/23/18 06/23/18 06/23/18 06:07 04:25 02:35 POC Glucose 135 H 129 H 99 06/23/18 06/23/18 06/22/18 01:33 00:12 22:51 POC Glucose 113 H 139 H 163 H 06/22/18 06/22/18 06/22/18 21:31 19:58 14:41 POC Glucose 183 H 208 H 139 H 06/22/18 06/22/18 06/22/18 13:40 12:53 12:08 POC Glucose 180 H 139 H 156 H 06/22/18 10:43 POC Glucose 136 H Radiology Reviewed by me: Yes (chest xray reviewed) EKG Reviewed by me: Yes Phys Exam - Physical Examination Constitutional: NAD HEENT: PERRLA, moist MMs, sclera anicteric Neck: no JVD, supple Respiratory: no wheezing, no rales, no rhonchi surgical site with dressing, chest tube in place Cardiovascular: RRR, no significant murmur, no rub Gastrointestinal: soft, non-tender, no distention, positive bowel sounds sahu+ Musculoskeletal: no edema, pulses present Neurological: non-focal Lymphatic: no nodes Psychiatric: normal affect Skin: no rash, normal turgor Dx/Plan (1) 3-vessel CAD Status: Acute Comment: s/p cabgX 4 (2) Anemia, normocytic normochromic Code(s): D64.9 - ANEMIA, UNSPECIFIED Status: Chronic (3) Atrial fibrillation Code(s): I48.91 - UNSPECIFIED ATRIAL FIBRILLATION Status: Chronic Qualifiers: Atrial fibrillation type: chronic Qualified Code(s): I48.2 - Chronic atrial fibrillation Comment: Rate controlled, s/p left atrial appendage ligation with CABG (4) Chronic anticoagulation Code(s): Z79.01 - DIRECTOR OF RETAIL MERCHANDISING (CURRENT) USE OF ANTICOAGULANTS Status: Chronic Comment: Currently on hold due to cabg (5) Diabetes type 2, controlled Code(s): E11.9 - TYPE 2 DIABETES MELLITUS WITHOUT COMPLICATIONS Status: Chronic Comment: will start her home dose of insulin and give 1800 kcal ADA diet, hyperglycemia protocol (6) Dyslipidemia Code(s): E78.5 - HYPERLIPIDEMIA, UNSPECIFIED Status: Chronic (7) H/O sick sinus syndrome Code(s): Z86.79 - PERSONAL HISTORY OF OTHER DISEASES OF THE CIRCULATORY SYSTEM Status: Chronic (8) Hypertension Code(s): I10 - ESSENTIAL (PRIMARY) HYPERTENSION Status: Chronic Comment: will resume her home meds (9) H/O: CVA (cerebrovascular accident) Code(s): Z86.73 - PRSNL HX OF TIA (TIA), AND CEREB INFRC W/O RESID DEFICITS Status: Chronic - Plan cont current plan of care, plan discussed w/ family * continue PRBC as ordered * discussed with daughter bedside * continue CT surgery protocol treatment as per cardiology and CT surgeon * medication reviewed as below * symptomatic treatment. Review of Systems - Review of Systems Constitutional: weakness. negative: fever, chills, sweats, malaise, other Eyes: negative: Pain, Vision Change, Conjunctivae Inflammation, Eyelid Inflammation, Redness, Other ENT: negative: Ear Pain, Ear Discharge, Nose Pain, Nose Discharge, Nose Congestion, Mouth Pain, Mouth Swelling, Throat Pain, Throat Swelling, Other Respiratory: negative: Cough, Dry, Shortness of Breath, Hemoptysis, SOB with Excertion, Pleuritic Pain, Sputum, Wheezing Cardiovascular: light headedness. negative: chest pain, palpitations, orthopnea , paroxysmal nocturnal dyspnea, edema, other Gastrointestinal: negative: Nausea, Vomiting, Abdominal Pain, Diarrhea, Constipation, Melena, Hematochezia, Other Genitourinary: negative: Dysuria, Frequency, Incontinence, Hematuria, Retention , Other Musculoskeletal: negative: Neck Pain, Shoulder Pain, Arm Pain, Back Pain, Hand Pain, Leg Pain, Foot Pain, Other Skin: negative: Rash, Lesions, Dangelo, Bruising, Other - Medications/Allergies Allergies/Adverse Reactions: Allergies Allergy/AdvReac Type Severity Reaction Status Date / Time codeine AdvReac Severe Nausea Verified 06/17/18 11:41 Medications: Current Medications Acetaminophen (Tylenol) 650 mg PO Q6H PRN PRN Reason: Headache/Fever Or Mild Pain Hydrocodone Bitart/Acetaminophen (Carolina 5/325) 1 tab PO Q4H PRN PRN Reason: Moderate Pain (4-6) Hydrocodone Bitart/Acetaminophen ([place] 5/325) 2 tab PO Q4H PRN PRN Reason: Severe Pain (7-10) Last Admin: 06/23/18 05:11 Dose: 2 tab Al Hydroxide/Mg Hydroxide (Maalox) 30 ml PO Q4H PRN PRN Reason: Indigestion Albumin Human (Albumin 5%) 12.5 gm IVPB Q6H PRN PRN Reason: To Maintain SBP> 90 mmHG Stop: 06/23/18 11:00 Albumin Human (Albumin 5%) 25 gm IVPB Q6H PRN PRN Reason: To Maintain SBP > 90 mmHG Stop: 06/23/18 11:00 Last Admin: 06/22/18 16:59 Dose: 25 gm Albuterol/Ipratropium (Duoneb) 3 ml NEB [id number] PRN PRN Reason: SHORTNESS OF BREATH Aspirin (Aspirin Chewable) 81 mg PO DAILY [facility] Last Admin: 06/23/18 09:24 Dose: 81 mg Bisacodyl (Dulcolax) 10 mg PO Q12H PRN PRN Reason: Constipation Bisacodyl (Dulcolax) 10 mg IN Q12H PRN PRN Reason: Constipation Dextrose/Water (Dextrose 50%) 25 gm SLOW IVP PRN PRN PRN Reason: Hypoglycemia Dextrose/Water (Dextrose 50%) 25 gm SLOW IVP PRN PRN PRN Reason: PER HYPOGLYCEMIC PROTOCOL Famotidine (Pepcid) 20 mg SLOW IVP Q12HR [facility] Last Admin: 06/23/18 09:24 Dose: 20 mg Fentanyl (Sublimaze) 25 mcg SLOW IVP Q2H PRN PRN Reason: Moderate Pain (4-6) Stop: 06/24/18 10:07 Last Admin: 06/22/18 20:06 Dose: 25 mcg Fentanyl (Sublimaze) 50 mcg SLOW IVP Q2H PRN PRN Reason: Severe Pain (7-10) Stop: 06/24/18 10:07 Last Admin: 06/22/18 22:47 Dose: 50 mcg Furosemide (Lasix) 40 mg SLOW IVP NOW [facility] Stop: 06/23/18 15:00 Glucagon (Glucagon) 1 mg IM PRN PRN PRN Reason: Hypoglycemia Glucagon (Glucagon) 1 mg SC PRN PRN PRN Reason: PER HYPOGLYCEMIC PROTOCOL Guaifenesin/Dextromethorphan (Robitussin Dm) 15 ml PO Q4H PRN PRN Reason: Cough Hydralazine HCl (Apresoline) 10 mg SLOW IVP Q6H PRN PRN Reason: To Maintain SBP< 140mmHG Ceftriaxone Sodium 1 gm/ (Sodium Chloride) 100 mls @ 200 mls/hr IVPB Q24HR [facility] Last Admin: 06/23/18 09:24 Dose: 100 mls Dextrose/Water (D5w) 1,000 mls @ 0 mls/hr IV .Q0M PRN PRN Reason: Hypoglycemia Hetastarch/Sodium Chloride (Hespan) 500 mls @ 0 mls/hr IVPB PRN PRN PRN Reason: To Maintain SBP > 90mmHg Stop: 06/23/18 10:07 Norepinephrine Bitartrate (Levophed) 250 mls @ 0 mls/hr IVPB PRN PRN; Protocol PRN Reason: To maintain SBP > 90 mmHG Last Admin: 06/22/18 15:50 Dose: 250 mls Nicardipine HCl 25 mg/ Sodium (Chloride) 250 mls @ 0 mls/hr IVPB INF PRN; Protocol PRN Reason: To Maintain SBP< 140mmHG Nitroglycerin/Dextrose (Nitroglycerin 50 Mg/250 Ml Bot) 250 mls @ 0 mls/hr IVPB PRN PRN; Protocol PRN Reason: To Maintain SBP< 140mmHG Sodium Chloride (Normal Saline 0.9%) 1,000 mls @ 75 mls/hr IV .[id number] ARISTIDES Last Admin: 06/23/18 00:20 Dose: Not Given Insulin Human Regular 100 (units/ Sodium Chloride) 101 mls @ 0 mls/hr IVPB INF ARISTIDES; Protocol Last Admin: 06/22/18 20:06 Dose: 101 mls Dextrose/Water (D5w) 1,000 mls @ 0 mls/hr IV INF PRN PRN Reason: PRN HYPOGLYCEMIC PROTOCOL Insulin Human Regular (Humulin R) 0 units SC .AGGRESSIVE SLIDING PRN PRN Reason: Aggressive Sliding Scale Ondansetron HCl (Zofran) 4 mg IVP Q6H PRN PRN Reason: Nausea/Vomiting Last Admin: 06/23/18 00:19 Dose: 4 mg Potassium Chloride (Kcl) 20 meq IVPB PRN PRN PRN Reason: K level </= 4.0 Last Admin: 06/22/18 16:49 Dose: 20 meq Promethazine HCl (Phenergan) 6.25 mg IM Q4H PRN PRN Reason: Nausea/Vomiting
[2018-06-23] MEDS: Insulin Regular 300 UNITS/3 ML VIAL SC PRN (11:49)
[2018-06-23] MEDS: Ketorolac Tromethamine 30 MG/ML VIAL IVP PRN (11:56)
[2018-06-24] MEDS ORDERED: Ketorolac Tromethamine 30 MG/ML VIAL ONE (07:30)
[2018-06-24] MEDS ORDERED: Temazepam 15 MG CAP PO PRN (11:24)
[2018-06-24] MEDS ORDERED: Diabetic Tussin 200 MG/10 ML UDCUP PO PRN (11:24)
[2018-06-24] MEDS ORDERED: Loratadine 10 MG TAB PO PRN (11:24)
[2018-06-24] MEDS ORDERED: Ondansetron ODT 4 MG TAB PO PRN (11:24)
[2018-06-24] MEDS ORDERED: Loperamide HCl 2 MG CAP PO PRN (11:24)
[2018-06-24] MEDS ORDERED: Eucerin (Mineral Oil/Petrolatum,White) 30 gm Jar TOP PRN (11:24)
[2018-06-24] MEDS ORDERED: Chloraseptic Spray 180 ml Bottle PO PRN (11:24)
[2018-06-24] MEDS ORDERED: Sodium Chloride 0.65% Nasal 44 ML BOT EA NARE PRN (11:24)
[2018-06-24] MEDS ORDERED: Artificial Tears 18 DROP/0.9 ML EA EYE PRN (11:24)
[2018-06-24] MEDS ORDERED: Milk Of Magnesia 30 ML UDCUP PO PRN (11:24)
[2018-06-24] MEDS: cefTRIAXone\\ROCEPHIN 1 GM in Sodium Chloride 0.9% 100 ML IVPB SCH (12:17)
[2018-06-24] MEDS: Famotidine/PF 20 mg/2ml Vial SLOW IVP SCH (12:18)
[2018-06-24 12:45] LABS: Anion Gap 12 mmol/L (10-20); BUN (Urea Nitrogen) 17 mg/dL (9.8-20.1); Calc. Creatinine Clearance 43 mL/min (70-130); Calcium 8.5 mg/dL (7.8-10.44); Carbon Dioxide 21 mmol/L (23-31); Chloride 110 mmol/L (98-107); Estimated GFR-MDRD 42; Potassium 4.4 mmol/L (3.5-5.1); Sodium 139 mmol/L (136-145)
[2018-06-24 13:18] LABS: Glucose 167 mg/dL (83-110)
--- NOTE | 2018-06-24 14:41 | PDOC.PN ---
- Subjective Encounter Start Date: 06/24/18 Encounter Start Time: 07:40 Patient seen and examined. No new complaints. No overnight events today feeling better, had good sleep no fever today chest tube removed, sahu out - Objective Resuscitation Status: Resuscitation Status FULL:Full Resuscitation MAR Reviewed: Yes Vital Signs & Weight: Vital Signs (12 hours) Pulse Ox 06/24/18 08:00 96 Weight Weight 164 lb 14.492 oz Most Recent Monitor Data Heart Rate from ECG 70 NIBP 129/80 NIBP BP-Mean 96 Respiration from ECG 16 SpO2 98 I&O: 06/23/18 06/24/18 06/25/18 06:59 06:59 06:59 Intake Total 1795.6 830 Output Total 1847 360 Balance -51.4 470 Result Diagrams: 06/23/18 04:20 06/24/18 03:30 Additional Labs: Accuchecks 06/23/18 06/23/18 20:47 15:54 POC Glucose 182 H 231 H Radiology Reviewed by me: Yes (chest xray reviewed as below) EKG Reviewed by me: Yes (nsr) Phys Exam - Physical Examination Constitutional: NAD HEENT: PERRLA, moist MMs, sclera anicteric Neck: no JVD, supple Respiratory: no wheezing, no rales, no rhonchi Cardiovascular: RRR, no significant murmur, no rub surgical site clean Gastrointestinal: soft, non-tender, no distention, positive bowel sounds Musculoskeletal: no edema, pulses present Neurological: non-focal, normal sensation Lymphatic: no nodes Psychiatric: normal affect, A&O x 3 Skin: no rash, normal turgor Dx/Plan (1) 3-vessel CAD Status: Acute Comment: s/p cabgX 4 (2) Anemia, normocytic normochromic Code(s): D64.9 - ANEMIA, UNSPECIFIED Status: Chronic (3) Atrial fibrillation Code(s): I48.91 - UNSPECIFIED ATRIAL FIBRILLATION Status: Chronic Qualifiers: Atrial fibrillation type: chronic Qualified Code(s): I48.2 - Chronic atrial fibrillation Comment: Rate controlled, s/p left atrial appendage ligation with CABG (4) Chronic anticoagulation Code(s): Z79.01 - S[facility]IVING (CURRENT) USE OF ANTICOAGULANTS Status: Chronic Comment: Currently on hold due to cabg (5) Diabetes type 2, controlled Code(s): E11.9 - TYPE 2 DIABETES MELLITUS WITHOUT COMPLICATIONS Status: Chronic Comment: will start her home dose of insulin and give 1800 kcal ADA diet, hyperglycemia protocol (6) Dyslipidemia Code(s): E78.5 - HYPERLIPIDEMIA, UNSPECIFIED Status: Chronic (7) H/O sick sinus syndrome Code(s): Z86.79 - PERSONAL HISTORY OF OTHER DISEASES OF THE CIRCULATORY SYSTEM Status: Chronic (8) Hypertension Code(s): I10 - ESSENTIAL (PRIMARY) HYPERTENSION Status: Chronic Comment: will resume her home meds (9) H/O: CVA (cerebrovascular accident) Code(s): Z86.73 - PRSNL HX OF TIA (TIA), AND CEREB INFRC W/O RESID DEFICITS Status: Chronic (10) UTI (urinary tract infection) Status: Acute - Plan cont current plan of care, plan discussed w/ family, continue antibiotics, PT/OT * continue rocephin for UTI * medication reviewed as below * symptomatic treatment * start elliquis today * overall stable and improving * continue post operative cardiac rehab. Review of Systems - Review of Systems Eyes: negative: Pain, Vision Change, Conjunctivae Inflammation, Eyelid Inflammation, Redness, Other ENT: negative: Ear Pain, Ear Discharge, Nose Pain, Nose Discharge, Nose Congestion, Mouth Pain, Mouth Swelling, Throat Pain, Throat Swelling, Other Respiratory: negative: Cough, Dry, Shortness of Breath, Hemoptysis, SOB with Excertion, Pleuritic Pain, Sputum, Wheezing Cardiovascular: negative: chest pain, palpitations, orthopnea, paroxysmal nocturnal dyspnea, edema, light headedness, other Gastrointestinal: negative: Nausea, Vomiting, Abdominal Pain, Diarrhea, Constipation, Melena, Hematochezia, Other Genitourinary: negative: Dysuria, Frequency, Incontinence, Hematuria, Retention , Other Musculoskeletal: negative: Neck Pain, Shoulder Pain, Arm Pain, Back Pain, Hand Pain, Leg Pain, Foot Pain, Other - Medications/Allergies Allergies/Adverse Reactions: Allergies Allergy/AdvReac Type Severity Reaction Status Date / Time codeine AdvReac Severe Nausea Verified 06/17/18 11:41 Medications: Current Medications Acetaminophen (Tylenol) 650 mg PO Q6H PRN PRN Reason: Headache/Fever Or Mild Pain Hydrocodone Bitart/Acetaminophen ([place] 5/325) 1 tab PO Q4H PRN PRN Reason: Moderate Pain (4-6) Hydrocodone Bitart/Acetaminophen ([place] 5/325) 2 tab PO Q4H PRN PRN Reason: Severe Pain (7-10) Last Admin: 06/23/18 05:11 Dose: 2 tab Al Hydroxide/Mg Hydroxide (Maalox) 30 ml PO Q4H PRN PRN Reason: Indigestion Albuterol/Ipratropium (Duoneb) 3 ml NEB [id number] PRN PRN Reason: SHORTNESS OF BREATH Aspirin (Aspirin Chewable) 81 mg PO DAILY [facility] Last Admin: 06/24/18 12:18 Dose: Not Given Bisacodyl (Dulcolax) 10 mg PO Q12H PRN PRN Reason: Constipation Bisacodyl (Dulcolax) 10 mg HI Q12H PRN PRN Reason: Constipation Dextrose/Water (Dextrose 50%) 25 gm SLOW IVP PRN PRN PRN Reason: Hypoglycemia Dextrose/Water (Dextrose 50%) 25 gm SLOW IVP PRN PRN PRN Reason: PER HYPOGLYCEMIC PROTOCOL Famotidine (Pepcid) 20 mg SLOW IVP Q12HR [facility] Last Admin: 06/24/18 12:18 Dose: Not Given Glucagon (Glucagon) 1 mg IM PRN PRN PRN Reason: Hypoglycemia Glucagon (Glucagon) 1 mg SC PRN PRN PRN Reason: PER HYPOGLYCEMIC PROTOCOL Guaifenesin/Dextromethorphan (Robitussin Dm) 15 ml PO Q4H PRN PRN Reason: Cough Hydralazine HCl (Apresoline) 10 mg SLOW IVP Q6H PRN PRN Reason: To Maintain SBP< 140mmHG Ceftriaxone Sodium 1 gm/ (Sodium Chloride) 100 mls @ 200 mls/hr IVPB Q24HR [facility] Last Admin: 06/24/18 12:17 Dose: Not Given Dextrose/Water (D5w) 1,000 mls @ 0 mls/hr IV .Q0M PRN PRN Reason: Hypoglycemia Norepinephrine Bitartrate (Levophed) 250 mls @ 0 mls/hr IVPB PRN PRN; Protocol PRN Reason: To maintain SBP > 90 mmHG Last Admin: 06/22/18 15:50 Dose: 250 mls Nicardipine HCl 25 mg/ Sodium (Chloride) 250 mls @ 0 mls/hr IVPB INF PRN; Protocol PRN Reason: To Maintain SBP< 140mmHG Nitroglycerin/Dextrose (Nitroglycerin 50 Mg/250 Ml Bot) 250 mls @ 0 mls/hr IVPB PRN PRN; Protocol PRN Reason: To Maintain SBP< 140mmHG Sodium Chloride (Normal Saline 0.9%) 1,000 mls @ 75 mls/hr IV .[id number] [facility] Last Admin: 06/23/18 20:58 Dose: 1,000 mls Insulin Human Regular 100 (units/ Sodium Chloride) 101 mls @ 0 mls/hr IVPB INF [facility]; Protocol Last Admin: 06/22/18 20:06 Dose: 101 mls Dextrose/Water (D5w) 1,000 mls @ 0 mls/hr IV INF PRN PRN Reason: PRN HYPOGLYCEMIC PROTOCOL Insulin Human Regular (Humulin R) 0 units SC .AGGRESSIVE SLIDING PRN PRN Reason: Aggressive Sliding Scale Last Admin: 06/23/18 11:49 Dose: 3 unit Ketorolac Tromethamine (Toradol) 15 mg IVP Q6H PRN PRN Reason: Pain Last Admin: 06/23/18 11:56 Dose: 15 mg Ondansetron HCl (Zofran) 4 mg IVP Q6H PRN PRN Reason: Nausea/Vomiting Last Admin: 06/23/18 00:19 Dose: 4 mg Potassium Chloride (Kcl) 20 meq IVPB PRN PRN PRN Reason: K level </= 4.0 Last Admin: 06/22/18 16:49 Dose: 20 meq Promethazine HCl (Phenergan) 6.25 mg IM Q4H PRN PRN Reason: Nausea/Vomiting
--- NOTE | 2018-06-24 14:51 | RAD ---
CHEST 1 VIEW: HISTORY: Heart surgery. Followup. COMPARISON: 06/23/2018. FINDINGS: Cardiac silhouette is magnified by projection. Pulmonary vasculature upper limits of normal. Medias tinum is midline with postoperative changes and a left subclavian central venous catheter. Left thor acostomy tube and mediastinal drain are no longer visible. Mild atelectasis at the left base. No ev idence of pneumothorax. IMPRESSION: 1. Interval removal of left thoracostomy tube and mediastinal drains. 2. Otherwise, stable postoperative appearance of the chest. POS: [facility]
[2018-06-24 17:09] LABS: #Lymphocytes 0.8 thou/uL (1.20-3.40); #Monocytes 0.9 thou/uL (0.11-0.59); #Neutrophils 10.7 thou/uL (1.40-6.50); %Basophils 0.2 % (0.0-1.0); %Eosinophils 0.3 % (0.0-10.0); %Lymphocytes 6.7 % (21.0-51.0); %Monocytes 7.2 % (0.0-10.0); %Neutrophils 85.7 % (42.0-75.0); Hemoglobin 11.9 g/dL (12.0-16.0); Mean Corpuscular HGB CONC 32.2 g/dL (32.0-36.0); Mean Corpuscular Hemoglobin 29.3 pg (27.0-31.0); Mean Platelet Volume 9.5 fL (7.4-10.4); Platelet Count 106 thou/uL (130-400); RBC Distribution Width 13.9 % (11.5-14.5); Red Blood Cell (RBC) Count 4.06 mill/uL (4.20-5.40); White Blood Cell (WBC) Count 12.5 thou/uL (4.8-10.8)
[2018-06-24] MEDS: Apixaban 5 MG TAB PO SCH (21:12)
[2018-06-24] MEDS: Famotidine 20 MG TAB PO SCH (21:12)
[2018-06-25 05:30] LABS: #Eosinphils 0.1 thou/uL (0.0-0.7); #Lymphocytes 1.5 thou/uL (1.20-3.40); #Monocytes 0.7 thou/uL (0.11-0.59); #Neutrophils 8.1 thou/uL (1.40-6.50); %Basophils 0.4 % (0.0-1.0); %Eosinophils 1.2 % (0.0-10.0); %Lymphocytes 13.9 % (21.0-51.0); %Monocytes 7.1 % (0.0-10.0); %Neutrophils 77.4 % (42.0-75.0); Hemoglobin 11.2 g/dL (12.0-16.0); Mean Corpuscular HGB CONC 33.5 g/dL (32.0-36.0); Mean Corpuscular Hemoglobin 30.3 pg (27.0-31.0); Mean Corpuscular Volume 90.5 fL (78.0-98.0); Mean Platelet Volume 9.4 fL (7.4-10.4); Platelet Count 107 thou/uL (130-400); RBC Distribution Width 14.2 % (11.5-14.5); Red Blood Cell (RBC) Count 3.69 mill/uL (4.20-5.40); White Blood Cell (WBC) Count 10.5 thou/uL (4.8-10.8)
[2018-06-25 05:48] LABS: Anion Gap 12 mmol/L (10-20); BUN (Urea Nitrogen) 23 mg/dL (9.8-20.1); Calc. Creatinine Clearance 60 mL/min (70-130); Calcium 8.3 mg/dL (7.8-10.44); Carbon Dioxide 19 mmol/L (23-31); Chloride 110 mmol/L (98-107); Estimated GFR-MDRD 63; Glucose 153 mg/dL (83-110); Potassium 3.8 mmol/L (3.5-5.1); Sodium 137 mmol/L (136-145)
--- NOTE | 2018-06-25 08:32 | RAD ---
SEMIUPRIGHT PORTABLE CHEST 1 VIEW: Date: 06/25/18 HISTORY: 82-year-old female, history of postop open heart follow-up. COMPARISON: 06/24/18. FINDINGS: Postop midline sternotomy. Monitor leads overlie the chest. Right-sided transvenous pacemaker. Left s ubclavian catheter. There is some bilateral vascular congestion with small pleural effusions. Minimal patchy infrahilar parenchymal changes bilaterally. IMPRESSION: Bilateral vascular congestion with some increased markings in the infrahilar regions bilaterally and small pleural effusions, little overall changed from prior study. Continue short-term follow-up. POS: MONY
[2018-06-25] MEDS ORDERED: Bisacodyl 5 MG TAB PO PRN (10:10)
--- NOTE | 2018-06-25 10:14 | PDOC.CTH ---
<IvelisseserenaJosy Britt - Last Filed: 06/25/18 10:12> Cardiology Progress Note - Subjective Up to chair. No complaints. - Objective Vital Signs Temp Pulse Resp BP Pulse Ox 06/25/18 03:21 97.6 F 76 18 112/56 L 96 Weight 161 lb 14.4 oz 06/24/18 06/25/18 06/26/18 06:59 06:59 06:59 Intake Total 830 630 Output Total 360 300 Balance 470 330 - Physical Examination General/Neuro: alert & oriented x3 Neck: no JVD present Lungs: unlabored respirations, other: (few rales to right base) Heart: other: (IRR) Abdomen: NT/ND Extremities: other: (Trace CORNELIO) - Labs Result Diagrams: 06/25/18 04:28 06/25/18 04:28 - Assessment/Plan 1. CAD s/p CABG x 4 2. Chronic AF - on Eliquis but history of noncompliance. s/p OZ ligation with CABG 3. mlid volume overload Doing well. Requesting stool softener and Glucerna. Rate-controlled AF on Eliquis. Cardiac Rehab today. <Gregory Davison - Last Filed: 06/25/18 19:36> Cardiology Progress Note - Objective Vital Signs Temp Pulse Pulse Pulse Resp BP BP 06/25/18 19:30 98.5 F 80 18 06/25/18 14:30 83 84 168/90 H 145/62 H 06/25/18 12:34 72 84 154/70 H 125/62 06/25/18 12:18 97.9 F 80 20 06/25/18 08:30 98.4 F 90 20 BP BP Pulse Ox 06/25/18 19:30 150/70 H 96 06/25/18 14:30 06/25/18 12:34 06/25/18 12:18 159/70 H 99 06/25/18 08:30 129/65 98 Weight 161 lb 14.4 oz 06/24/18 06/25/18 06/26/18 06:59 06:59 06:59 Intake Total 830 630 Output Total 360 300 Balance 470 330 - Labs Result Diagrams: 06/25/18 04:28 06/25/18 04:28 - Assessment/Plan Pt seen and examined. Agree with the above assessment
[2018-06-25] MEDS ORDERED: Furosemide 20 MG/2 ML VIAL SLOW IVP SCH (10:15)
[2018-06-25] MEDS: cefTRIAXone\\ROCEPHIN 1 GM in Sodium Chloride 0.9% 100 ML IVPB SCH (10:31)
[2018-06-25] MEDS: Metoprolol Tartrate 25 MG TAB PO SCH ×2 (10:32→20:26)
[2018-06-25] MEDS: Famotidine 20 MG TAB PO SCH ×2 (10:32→20:27)
[2018-06-25] MEDS: Apixaban 5 MG TAB PO SCH ×2 (10:33→20:26)
[2018-06-25] MEDS ORDERED: Polyethylene Glycol 3350 17 GM Packet PO SCH ×2 (11:00→12:00)
[2018-06-25] MEDS: Insulin Regular 300 UNITS/3 ML VIAL SC PRN ×2 (13:00→18:23)
--- NOTE | 2018-06-25 13:49 | PDOC.PN ---
- Subjective Encounter Start Date: 06/25/18 Encounter Start Time: 10:00 Subjective: pt up in chair feels tired - Objective Resuscitation Status: Resuscitation Status FULL:Full Resuscitation Vital Signs & Weight: Vital Signs (12 hours) Temp Pulse Pulse Pulse Resp BP BP 06/25/18 12:34 72 84 154/70 H 125/62 06/25/18 12:18 97.9 F 80 20 06/25/18 08:30 98.4 F 90 20 06/25/18 03:21 97.6 F 76 18 BP BP Pulse Ox 06/25/18 12:34 06/25/18 12:18 159/70 H 99 06/25/18 08:30 129/65 98 06/25/18 03:21 112/56 L 96 Weight Weight 161 lb 14.4 oz Most Recent Monitor Data Heart Rate from ECG 70 NIBP 129/80 NIBP BP-Mean 96 Respiration from ECG 16 SpO2 98 I&O: 06/24/18 06/25/18 06/26/18 06:59 06:59 06:59 Intake Total 830 630 Output Total 360 300 Balance 470 330 Result Diagrams: 06/25/18 04:28 06/25/18 04:28 Additional Labs: Accuchecks 06/25/18 06/25/18 06/24/18 11:36 05:32 20:22 POC Glucose 199 H 152 H 182 H 06/24/18 06/24/18 06/24/18 16:58 10:57 05:50 POC Glucose 180 H 215 H 161 H Phys Exam - Physical Examination HEENT: PERRLA, moist MMs, sclera anicteric, TM's clear, oral pharynx no lesions , 2+ tonsils Neck: no nodes, no JVD, supple, full ROM Respiratory: no wheezing, no rales, no rhonchi, wheezing present, clear to auscultation bilateral mid sternum scar Gastrointestinal: soft, non-tender, no distention, positive bowel sounds Musculoskeletal: no edema, pulses present, edema present Dx/Plan (1) 3-vessel CAD Status: Acute Comment: s/p cabgX 4 (2) UTI (urinary tract infection) Status: Acute (3) Anemia, normocytic normochromic Code(s): D64.9 - ANEMIA, UNSPECIFIED Status: Chronic (4) Diabetes type 2, controlled Code(s): E11.9 - TYPE 2 DIABETES MELLITUS WITHOUT COMPLICATIONS Status: Chronic Comment: will start her home dose of insulin and give 1800 kcal ADA diet, hyperglycemia protocol - Plan pt states she feels tired today, hh is low stable -: pt will need cardiac rehab. -: Encouraged to use Incentive spirometry * . Review of Systems - Review of Systems Constitutional: weakness Respiratory: negative: Cough, Dry, Shortness of Breath, Hemoptysis, SOB with Excertion, Pleuritic Pain, Sputum, Wheezing Cardiovascular: negative: chest pain, palpitations, orthopnea, paroxysmal nocturnal dyspnea, edema, light headedness, other Gastrointestinal: negative: Nausea, Vomiting, Abdominal Pain, Diarrhea, Constipation, Melena, Hematochezia, Other Genitourinary: negative: Dysuria, Frequency, Incontinence, Hematuria, Retention , Other - Medications/Allergies Allergies/Adverse Reactions: Allergies Allergy/AdvReac Type Severity Reaction Status Date / Time codeine AdvReac Severe Nausea Verified 06/17/18 11:41 Medications: Current Medications Acetaminophen (Tylenol) 650 mg PO Q6H PRN PRN Reason: Headache/Fever Or Mild Pain Hydrocodone Bitart/Acetaminophen ([place] 5/325) 1 tab PO Q4H PRN PRN Reason: Moderate Pain (4-6) Hydrocodone Bitart/Acetaminophen ([place] 5/325) 2 tab PO Q4H PRN PRN Reason: Severe Pain (7-10) Last Admin: 06/23/18 05:11 Dose: 2 tab Al Hydroxide/Mg Hydroxide (Maalox) 30 ml PO Q4H PRN PRN Reason: Indigestion Albuterol/Ipratropium (Duoneb) 3 ml NEB [id number] PRN PRN Reason: SHORTNESS OF BREATH Apixaban (Eliquis) 5 mg PO BID [facility] Last Admin: 06/25/18 10:33 Dose: 5 mg Aspirin (Aspirin Chewable) 81 mg PO DAILY [facility] Last Admin: 06/25/18 10:33 Dose: 81 mg Atorvastatin Calcium (Lipitor) 40 mg PO HS [facility] Bisacodyl (Dulcolax) 10 mg PO Q12H PRN PRN Reason: Constipation Last Admin: 06/25/18 11:05 Dose: 10 mg Bisacodyl (Dulcolax) 10 mg MT Q12H PRN PRN Reason: Constipation Dextrose/Water (Dextrose 50%) 25 gm SLOW IVP PRN PRN PRN Reason: Hypoglycemia Docusate Sodium (Colace) 100 mg PO BID [facility] Famotidine (Pepcid) 20 mg PO BID [facility] Last Admin: 06/25/18 10:32 Dose: 20 mg Glucagon (Glucagon) 1 mg SC PRN PRN PRN Reason: PER HYPOGLYCEMIC PROTOCOL Guaifenesin (Robitussin Sf) 200 mg PO Q4H PRN PRN Reason: Cough Guaifenesin/Dextromethorphan (Robitussin Dm) 15 ml PO Q4H PRN PRN Reason: Cough Hydralazine HCl (Apresoline) 10 mg SLOW IVP Q6H PRN PRN Reason: To Maintain SBP< 140mmHG Ceftriaxone Sodium 1 gm/ (Sodium Chloride) 100 mls @ 200 mls/hr IVPB Q24HR [facility] Last Admin: 06/25/18 10:31 Dose: 100 mls Dextrose/Water (D5w) 1,000 mls @ 0 mls/hr IV INF PRN PRN Reason: PRN HYPOGLYCEMIC PROTOCOL Insulin Human Regular (Humulin R) 0 units SC .AGGRESSIVE SLIDING PRN PRN Reason: Aggressive Sliding Scale Last Admin: 06/23/18 11:49 Dose: 3 unit Ketorolac Tromethamine (Toradol) 15 mg IVP Q6H PRN PRN Reason: Pain Last Admin: 06/23/18 11:56 Dose: 15 mg Loperamide HCl (Imodium) 2 mg PO PRN PRN PRN Reason: Diarrhea/Loose Stools Loratadine (Claritin) 10 mg PO DAILYPRN PRN PRN Reason: Sinus Symptoms Magnesium Hydroxide (Milk Of Magnesium) 30 ml PO DAILYPRN PRN PRN Reason: Constipation Metoprolol Tartrate (Lopressor) 12.5 mg PO BID [facility] Last Admin: 06/25/18 10:32 Dose: 12.5 mg Mineral Oil/White Petrolatum (Eucerin Cream) 0 gm TOP BIDPRN PRN PRN Reason: Dry Skin Ondansetron HCl (Zofran) 4 mg IVP Q6H PRN PRN Reason: Nausea/Vomiting Last Admin: 06/23/18 00:19 Dose: 4 mg Ondansetron HCl (Zofran Odt) 4 mg PO Q6H PRN PRN Reason: Nausea/Vomiting Phenol (Chloraseptic [place] 180 Ml Bot) 0 ml PO PRN PRN PRN Reason: Sore Throat Polyethylene Glycol (Miralax) 17 gm PO DAILY [facility] Sodium Chloride ([place] Nasal [place] 0.65%) 0 ml EA NARE QIDPRN PRN PRN Reason: Nasal Congestion Sodium Chloride (Flush - Normal Saline) 10 ml IVF Q12HR [facility] Last Admin: 06/25/18 10:33 Dose: 10 ml Sodium Chloride (Flush - Normal Saline) 10 ml IVF PRN PRN PRN Reason: Saline Flush Temazepam (Restoril) 15 mg PO HSPRN PRN PRN Reason: Insomnia
[2018-06-25] MEDS: Docusate 100 MG CAP PO SCH (20:26)
[2018-06-25] MEDS: Atorvastatin Calcium 40 MG TAB PO SCH (20:27)
[2018-06-26] MEDS: Ketorolac Tromethamine 30 MG/ML VIAL IVP PRN (00:18)
--- NOTE | 2018-06-26 09:20 | PDOC.CTH ---
Cardiology Progress Note - Subjective Patient states she feels much better today. Eating more and walked twice yesterday in [place]. - Objective Vital Signs Temp Pulse Resp BP Pulse Ox 06/26/18 08:00 94 L 06/26/18 07:30 97.9 F 70 16 166/74 H 94 L 06/26/18 04:00 98.1 F 64 24 H 136/63 96 06/26/18 00:00 18 Weight 165 lb 11.2 oz 06/25/18 06/26/18 06/27/18 06:59 06:59 06:59 Intake Total 630 310 Output Total 300 300 Balance 330 10 - Physical Examination General/Neuro: alert & oriented x3 Neck: no JVD present Lungs: CTA Heart: other: (IRR) Abdomen: NT/ND - Telemetry Telemetry Rhythm: SR - Labs Result Diagrams: 06/25/18 04:28 06/25/18 04:28 - Assessment/Plan 1. CAD s/p CABG x 4 2. Chronic AF - on Eliquis but history of noncompliance. s/p OZ ligation with CABG 3. mild volume overload Continue increased activity. Doing well. Lasix daily. Placement planning.
[2018-06-26] MEDS ORDERED: Furosemide 40 MG/4 ML VIAL SLOW IVP SCH (09:30)
[2018-06-26] MEDS: Apixaban 5 MG TAB PO SCH ×2 (09:33→21:00)
[2018-06-26] MEDS: Metoprolol Tartrate 25 MG TAB PO SCH ×2 (09:34→21:00)
[2018-06-26] MEDS: Famotidine 20 MG TAB PO SCH ×2 (09:35→21:00)
[2018-06-26] MEDS: cefTRIAXone\\ROCEPHIN 1 GM in Sodium Chloride 0.9% 100 ML IVPB SCH (09:36)
[2018-06-26] MEDS: Docusate 100 MG CAP PO SCH ×2 (09:36→21:00)
[2018-06-26] MEDS: Polyethylene Glycol 3350 17 GM Packet PO SCH (09:37)
--- NOTE | 2018-06-26 14:26 | PDOC.PN ---
- Subjective Encounter Start Date: 06/26/18 Encounter Start Time: 10:15 Subjective: pt up in chair no complains - Objective Resuscitation Status: Resuscitation Status FULL:Full Resuscitation Vital Signs & Weight: Vital Signs (12 hours) Temp Pulse Pulse Pulse Resp BP BP 06/26/18 12:00 97.9 F 80 16 06/26/18 11:11 80 86 145/82 H 169/79 H 06/26/18 08:00 06/26/18 07:30 97.9 F 70 16 06/26/18 04:00 98.1 F 64 24 H BP BP Pulse Ox 06/26/18 12:00 145/82 H 98 06/26/18 11:11 06/26/18 08:00 94 L 06/26/18 07:30 166/74 H 94 L 06/26/18 04:00 136/63 96 Weight Weight 165 lb 11.2 oz Most Recent Monitor Data Heart Rate from ECG 70 NIBP 129/80 NIBP BP-Mean 96 Respiration from ECG 16 SpO2 98 I&O: 06/25/18 06/26/18 06/27/18 06:59 06:59 06:59 Intake Total 630 310 190 Output Total 300 300 Balance 330 10 190 Result Diagrams: 06/25/18 04:28 06/25/18 04:28 Additional Labs: Accuchecks 06/26/18 06/26/18 06/25/18 10:41 05:49 20:26 POC Glucose 207 H 116 H 146 H 06/25/18 16:51 POC Glucose 203 H Phys Exam - Physical Examination Neck: no nodes, no JVD, supple, full ROM Respiratory: no wheezing, no rales, no rhonchi, wheezing present, clear to auscultation bilateral Cardiovascular: RRR, no significant murmur, no rub, gallop, irregular Gastrointestinal: soft, non-tender, no distention, positive bowel sounds Dx/Plan (1) 3-vessel CAD Status: Acute Comment: s/p cabgX 4 (2) UTI (urinary tract infection) Status: Acute (3) Anemia, normocytic normochromic Code(s): D64.9 - ANEMIA, UNSPECIFIED Status: Chronic (4) Diabetes type 2, controlled Code(s): E11.9 - TYPE 2 DIABETES MELLITUS WITHOUT COMPLICATIONS Status: Chronic Comment: will start her home dose of insulin and give 1800 kcal ADA diet, hyperglycemia protocol - Plan pt's abx stated 06/22 will continue for now. -: pt awaiting palcement * . Review of Systems - Review of Systems ENT: negative: Ear Pain, Ear Discharge, Nose Pain, Nose Discharge, Nose Congestion, Mouth Pain, Mouth Swelling, Throat Pain, Throat Swelling, Other Respiratory: negative: Cough, Dry, Shortness of Breath, Hemoptysis, SOB with Excertion, Pleuritic Pain, Sputum, Wheezing Cardiovascular: negative: chest pain, palpitations, orthopnea, paroxysmal nocturnal dyspnea, edema, light headedness, other Gastrointestinal: negative: Nausea, Vomiting, Abdominal Pain, Diarrhea, Constipation, Melena, Hematochezia, Other - Medications/Allergies Allergies/Adverse Reactions: Allergies Allergy/AdvReac Type Severity Reaction Status Date / Time codeine AdvReac Severe Nausea Verified 06/17/18 11:41 Medications: Current Medications Acetaminophen (Tylenol) 650 mg PO Q6H PRN PRN Reason: Headache/Fever Or Mild Pain Hydrocodone Bitart/Acetaminophen ([place] 5/325) 1 tab PO Q4H PRN PRN Reason: Moderate Pain (4-6) Hydrocodone Bitart/Acetaminophen ([place] 5/325) 2 tab PO Q4H PRN PRN Reason: Severe Pain (7-10) Last Admin: 06/23/18 05:11 Dose: 2 tab Al Hydroxide/Mg Hydroxide (Maalox) 30 ml PO Q4H PRN PRN Reason: Indigestion Albuterol/Ipratropium (Duoneb) 3 ml NEB [id number] PRN PRN Reason: SHORTNESS OF BREATH Apixaban (Eliquis) 5 mg PO BID [facility] Last Admin: 06/26/18 09:33 Dose: 5 mg Aspirin (Aspirin Chewable) 81 mg PO DAILY [facility] Last Admin: 06/26/18 09:36 Dose: 81 mg Atorvastatin Calcium (Lipitor) 40 mg PO HS [facility] Last Admin: 06/25/18 20:27 Dose: 40 mg Bisacodyl (Dulcolax) 10 mg PO Q12H PRN PRN Reason: Constipation Last Admin: 06/25/18 11:05 Dose: 10 mg Bisacodyl (Dulcolax) 10 mg IA Q12H PRN PRN Reason: Constipation Dextrose/Water (Dextrose 50%) 25 gm SLOW IVP PRN PRN PRN Reason: Hypoglycemia Docusate Sodium (Colace) 100 mg PO BID [facility] Last Admin: 06/26/18 09:36 Dose: 100 mg Famotidine (Pepcid) 20 mg PO BID [facility] Last Admin: 06/26/18 09:35 Dose: 20 mg Furosemide (Lasix) 40 mg PO DAILY[facility] Glucagon (Glucagon) 1 mg SC PRN PRN PRN Reason: PER HYPOGLYCEMIC PROTOCOL Guaifenesin (Robitussin Sf) 200 mg PO Q4H PRN PRN Reason: Cough Guaifenesin/Dextromethorphan (Robitussin Dm) 15 ml PO Q4H PRN PRN Reason: Cough Hydralazine HCl (Apresoline) 10 mg SLOW IVP Q6H PRN PRN Reason: To Maintain SBP< 140mmHG Ceftriaxone Sodium 1 gm/ (Sodium Chloride) 100 mls @ 200 mls/hr IVPB Q24HR [facility] Last Admin: 06/26/18 09:36 Dose: 100 mls Dextrose/Water (D5w) 1,000 mls @ 0 mls/hr IV INF PRN PRN Reason: PRN HYPOGLYCEMIC PROTOCOL Insulin Glargine 10 units/ (Miscellaneous Medication) 0.1 mls @ 0 mls/hr SC [facility] Insulin Human Regular (Humulin R) 0 units SC .AGGRESSIVE SLIDING PRN PRN Reason: Aggressive Sliding Scale Last Admin: 06/25/18 18:23 Dose: 6 unit Ketorolac Tromethamine (Toradol) 15 mg IVP Q6H PRN PRN Reason: Pain Last Admin: 06/26/18 00:18 Dose: 15 mg Loperamide HCl (Imodium) 2 mg PO PRN PRN PRN Reason: Diarrhea/Loose Stools Loratadine (Claritin) 10 mg PO DAILYPRN PRN PRN Reason: Sinus Symptoms Magnesium Hydroxide (Milk Of Magnesium) 30 ml PO DAILYPRN PRN PRN Reason: Constipation Metoprolol Tartrate (Lopressor) 12.5 mg PO BID [facility] Last Admin: 06/26/18 09:34 Dose: 12.5 mg Mineral Oil/White Petrolatum (Eucerin Cream) 0 gm TOP BIDPRN PRN PRN Reason: Dry Skin Ondansetron HCl (Zofran) 4 mg IVP Q6H PRN PRN Reason: Nausea/Vomiting Last Admin: 06/23/18 00:19 Dose: 4 mg Ondansetron HCl (Zofran Odt) 4 mg PO Q6H PRN PRN Reason: Nausea/Vomiting Phenol (Chloraseptic [place] 180 Ml Bot) 0 ml PO PRN PRN PRN Reason: Sore Throat Polyethylene Glycol (Miralax) 17 gm PO DAILY [facility] Last Admin: 06/26/18 09:37 Dose: Not Given Potassium Chloride (Klor-Con 10) 10 meq PO QAM-WM [facility] Sodium Chloride ([place] Nasal [place] 0.65%) 0 ml EA NARE QIDPRN PRN PRN Reason: Nasal Congestion Sodium Chloride (Flush - Normal Saline) 10 ml IVF Q12HR [facility] Last Admin: 06/26/18 09:37 Dose: 10 ml Sodium Chloride (Flush - Normal Saline) 10 ml IVF PRN PRN PRN Reason: Saline Flush Temazepam (Restoril) 15 mg PO HSPRN PRN PRN Reason: Insomnia
[2018-06-26] MEDS: Atorvastatin Calcium 40 MG TAB PO SCH (21:00)
[2018-06-27] MEDS ORDERED: Furosemide 40 MG TAB PO SCH (07:30)
[2018-06-27] MEDS ORDERED: Potassium Chloride 10 MEQ TAB PO SCH (08:00)
[2018-06-27] MEDS: Docusate 100 MG CAP PO SCH (08:15)
[2018-06-27] MEDS: Metoprolol Tartrate 25 MG TAB PO SCH (08:15)
[2018-06-27] MEDS: Famotidine 20 MG TAB PO SCH (08:15)
[2018-06-27] MEDS: Apixaban 5 MG TAB PO SCH (08:15)
[2018-06-27] MEDS: Polyethylene Glycol 3350 17 GM Packet PO SCH (08:16)
[2018-06-27] MEDS: cefTRIAXone\\ROCEPHIN 1 GM in Sodium Chloride 0.9% 100 ML IVPB SCH (08:18)
[2018-06-27] MEDS ORDERED: Insulin Glargine 10 UNITS in Pre-Filled Syringe 1 EACH SC SCH (09:00)
--- NOTE | 2018-06-27 13:41 | PRG ---
DATE OF SERVICE: 06/27/2018. SUBJECTIVE: Ms. Lam is doing well. She is sitting up in a chair. Her appetite is still poor. N o chest pain or pressure. OBJECTIVE: VITAL SIGNS: Blood pressure 154/69, pulse 80. LUNGS: Clear. CARDIAC: Normal S1, normal S2. ABDOMEN: Soft, nontender. EXTREMITIES: No edema. The patient did report quite a bit of bleeding from the chest tube site, the night before last. ASSESSMENT: 1. Status post bypass surgery. 2. Paroxysmal atrial fibrillation. 3. Previous pacemaker insertion. 4. Some bleeding in the night before last. PLAN: 1. We will hold a single dose of apixaban and then continue apixaban. 2. Resume losartan. 3. Arrangements are being made to transfer to rehabilitation.
[2018-06-27 16:09] VITALS: TEMP 97.9
[2018-06-27 16:41] VITALS: BP 133/65
[2018-06-28] MEDS ORDERED: Apixaban 5 MG TAB PO SCH (09:00)
[2018-06-28] MEDS ORDERED: Losartan 25 MG TAB PO SCH (09:00)
== END 2018-06-27 16:41 | DRG 234 ==
LOC: CCL 05:59 → 2NO 09:26 → CCU 06-22 08:32 → 2NO 06-23 17:28
PROVIDERS: ADMIT Internal Medicine Cardiovascular Disease; ATTEND Internal Medicine Cardiovascular Disease
PROC: 4A023N7 Measurement of Cardiac Sampling and Pressure, Left Heart, Percutaneous Approach (ICD-10-PCS; 2018-06-21)
PROC: B2111ZZ Fluoroscopy of Multiple Coronary Arteries using Low Osmolar Contrast (ICD-10-PCS; 2018-06-21)
PROC: B2151ZZ Fluoroscopy of Left Heart using Low Osmolar Contrast (ICD-10-PCS; 2018-06-21)
PROC: 02L70ZK Occlusion of Left Atrial Appendage, Open Approach (ICD-10-PCS; 2018-06-21)
PROC: 02100Z9 Bypass Coronary Artery, One Artery from Left Internal Mammary, Open Approach (ICD-10-PCS; principal; 2018-06-22)
PROC: 021109W Bypass Coronary Artery, Two Arteries from Aorta with Autologous Venous Tissue, Open Approach (ICD-10-PCS; 2018-06-22)
PROC: 0210093 Bypass Coronary Artery, One Artery from Coronary Artery with Autologous Venous Tissue, Open Approach (ICD-10-PCS; 2018-06-22)
DX: I25.10 Atherosclerotic heart disease of native coronary artery without angina pectoris (principal); N39.0 Urinary tract infection, site not specified; E11.9 Type 2 diabetes mellitus without complications; I10 Essential (primary) hypertension; Z86.73 Personal history of transient ischemic attack (TIA), and cerebral infarction without residual deficits; D64.9 Anemia, unspecified; Z79.01 Long term (current) use of anticoagulants; Z95.0 Presence of cardiac pacemaker; Z91.14 Patient's other noncompliance with medication regimen; Z79.899 Other long term (current) drug therapy; Z79.4 Long term (current) use of insulin; E78.5 Hyperlipidemia, unspecified; I08.3 Combined rheumatic disorders of mitral, aortic and tricuspid valves; B95.61 Methicillin susceptible Staphylococcus aureus infection as the cause of diseases classified elsewhere; I48.0 Paroxysmal atrial fibrillation; Z79.82 Long term (current) use of aspirin; Z88.5 Allergy status to narcotic agent
CPT/HCPCS: 36415; 36416; 36430; 71045; 80048; 80053; 80061; 81001; 82805; 85025; 85610; 85730; 86850; 86900; 86901; 87077; 87086; 87186; 93005; 93010; 93458; 93798; 94002; 99152; C1769; G8978-GP-CJ; G8979-GP-CI; G8987-GO-CJ; G8988-GO-CI; J0360; J0696; J1642; J1644; J1815; J1885; J1940; J2001; J2150; J2250; J2370; J2405; J2440; J2704; J2720; J3010; J3370; J3475; J3480; J7050; P9016; P9045; S0017; S0028

== ENCOUNTER 2018-09-23 07:20 | Emergency (ER) | payer MEDICARE ==
[2018-09-23 08:04] LABS: #Eosinphils 0.1 thou/uL (0.0-0.7); #Lymphocytes 1.3 thou/uL (1.20-3.40); #Monocytes 0.5 thou/uL (0.11-0.59); #Neutrophils 5.4 thou/uL (1.40-6.50); %Basophils 0.5 % (0.0-1.0); %Eosinophils 1.5 % (0.0-10.0); %Monocytes 7.1 % (0.0-10.0); Hemoglobin 12.6 g/dL (12.0-16.0); Mean Corpuscular HGB CONC 32.8 g/dL (32.0-36.0); Mean Corpuscular Hemoglobin 28.5 pg (27.0-31.0); Platelet Count 168 thou/uL (130-400); RBC Distribution Width 13.4 % (11.5-14.5); Red Blood Cell (RBC) Count 4.42 mill/uL (4.20-5.40); White Blood Cell (WBC) Count 7.4 thou/uL (4.8-10.8)
[2018-09-23 08:34] LABS: ALT (SGPT) 14 U/L (8-55); AST (SGOT) 34 U/L (5-34); Albumin 4.1 g/dL (3.4-4.8); Alkaline Phosphatase 71 U/L (40-150); Anion Gap 17 mmol/L (10-20); BUN (Urea Nitrogen) 13 mg/dL (9.8-20.1); Bilirubin, Total 2.7 mg/dL (0.2-1.2); Calc. Creatinine Clearance 0 mL/min (70-130); Calcium 9.3 mg/dL (7.8-10.44); Carbon Dioxide 18 mmol/L (23-31); Chloride 112 mmol/L (98-107); Estimated GFR-MDRD 63; Globulin 3.4 g/dL (2.4-3.5); Glucose 114 mg/dL (83-110); Potassium 4.2 mmol/L (3.5-5.1); Protein, Total 7.5 g/dL (6.0-8.3); Sodium 143 mmol/L (136-145)
--- NOTE | 2018-09-23 08:53 | RAD ---
SINGLE VIEW CHEST: Date: 09/23/18 COMPARISON: 06/25/18. HISTORY: Chest pain. FINDINGS: Single view of the chest shows an enlarged but stable cardiomediastinal silhouette. The patient is st atus post CABG. The pacemaker is unchanged in position. There is no evidence of consolidation, mass, or pleural effusion. IMPRESSION: Cardiomegaly without evidence of acute cardiopulmonary disease. POS: [facility]
[2018-09-23 11:18] LABS: Troponin I Less than 0.010 ng/mL (< 0.028)
== END 2018-09-23 12:50 | disposition home or self-care (01) ==
LOC: ERS 07:20
DX: R07.9 Chest pain, unspecified (principal); I10 Essential (primary) hypertension; E11.9 Type 2 diabetes mellitus without complications; Z79.899 Other long term (current) drug therapy; Z79.4 Long term (current) use of insulin; Z79.01 Long term (current) use of anticoagulants
CPT/HCPCS: 36415; 71045; 80053; 84484; 85025; 93005

== ENCOUNTER 2020-11-19 16:24 | Outpatient (CLI) | payer MEDICARE ==
[2020-11-19 18:18] LABS: #Basophils 0.1 10x3/uL (0.0-0.2); #Eosinphils 0.1 10x3/uL (0.0-0.5); #Monocytes 0.6 10x3/uL (0.0-1.1); #Neutrophils 4.7 10x3/uL (1.5-8.4); %Basophils 0.6 % (0.0-2.0); %Eosinophils 1.5 % (0.0-6.0); %Lymphocytes 29.3 % (18.0-47.0); %Monocytes 7.6 % (0.0-10.0); %Neutrophils 60.6 % (40.0-75.0); Hemoglobin 13.3 g/dL (12.0-15.5); Mean Corpuscular Hemoglobin 28.1 pg (27.0-33.0); Mean Corpuscular Volume 87.9 fl (81.6-98.3); Mean Platelet Volume 10.4 fl (7.4-10.4); Platelet Count 173 10x3/uL (150-450); Red Blood Cell (RBC) Count 4.73 10x6/uL (3.90-5.03); White Blood Cell (WBC) Count 7.8 10x3/uL (3.5-10.5)
[2020-11-19 18:27] LABS: ALT (SGPT) 10 U/L (8-55); AST (SGOT) 18 U/L (5-34); Albumin 4.9 g/dL (3.4-4.8); Alkaline Phosphatase 59 U/L (40-110); Anion Gap 13 mmol/L (10-20); BUN (Urea Nitrogen) 15 mg/dL (9.8-20.1); Bilirubin, Total 2.6 mg/dL (0.2-1.2); Calc. Creatinine Clearance 0 mL/min (70-130); Calcium 9.7 mg/dL (7.8-10.44); Carbon Dioxide 27 mmol/L (23-31); Chloride 102 mmol/L (98-107); Globulin 2.8 g/dL (2.4-3.5); Glucose 118 mg/dL (83-110); Potassium 4.1 mmol/L (3.5-5.1); Protein, Total 7.7 g/dL (5.8-8.1); Sodium 138 mmol/L (136-145)
[2020-11-20 06:46] LABS: SARS-CoV-2 PCR by NAA Not Detected (NotDetected)
== END 2020-11-19 16:25 | disposition home or self-care (01) ==
LOC: LABBT 16:24
PROVIDERS: ATTEND Internal Medicine Cardiovascular Disease
DX: Z01.812 Encounter for preprocedural laboratory examination (principal); Z20.822 Contact with and (suspected) exposure to COVID-19
CPT/HCPCS: 80053; 85025; U0003; U0005; 87635

== ENCOUNTER 2020-11-22 11:03 | Day surgery (SDC) | payer MEDICARE ==
[2020-11-21 11:03] VITALS: BMI 23.2
[2020-11-22] MEDS ORDERED: PROPOFOL 20 ML ONE (12:23)
== END 2020-11-22 13:59 | disposition home or self-care (01) ==
LOC: CCL 11:03
PROVIDERS: ATTEND Internal Medicine Cardiovascular Disease
PROC: B24BZZ4 Ultrasonography of Heart with Aorta, Transesophageal (ICD-10-PCS; principal; 2020-11-22)
DX: I48.20 Chronic atrial fibrillation, unspecified (principal); I08.1 Rheumatic disorders of both mitral and tricuspid valves; I25.2 Old myocardial infarction; I25.5 Ischemic cardiomyopathy; I63.512 Cerebral infarction due to unspecified occlusion or stenosis of left middle cerebral artery; E11.9 Type 2 diabetes mellitus without complications; E78.00 Pure hypercholesterolemia, unspecified; I10 Essential (primary) hypertension; Z79.01 Long term (current) use of anticoagulants; Z88.5 Allergy status to narcotic agent; Z95.0 Presence of cardiac pacemaker; Z95.1 Presence of aortocoronary bypass graft
CPT/HCPCS: 36416; 93312; J2704

== ENCOUNTER 2023-07-02 16:03 | Emergency (ER) | payer MEDICARE ==
[2023-07-02] MEDS ORDERED: Acetaminophen 500 MG TAB ONE (18:36)
== END 2023-07-02 20:53 | disposition home or self-care (01) ==
LOC: ERS 16:03
DX: R60.0 Localized edema (principal); E11.9 Type 2 diabetes mellitus without complications; I10 Essential (primary) hypertension; Z79.4 Long term (current) use of insulin; Z79.899 Other long term (current) drug therapy

== ENCOUNTER 2023-07-10 10:10 | Inpatient (IN) | payer MEDICARE, OTHER ==
[2023-07-10 10:47] LABS: #Basophils 0.1 thou/uL (0.0-0.2); #Eosinphils 0.2 thou/uL (0.0-0.7); #Monocytes 0.5 thou/uL (0.11-0.59); #Neutrophils 5.7 thou/uL (1.40-6.50); %Basophils 0.7 % (0.0-1.0); %Lymphocytes 15.3 % (21.0-51.0); %Monocytes 6.8 % (0.0-10.0); %Neutrophils 74.9 % (42.0-75.0); Hematocrit 30.5 % (36.0-47.0); Mean Corpuscular HGB CONC 32.8 g/dL (32.0-36.0); Mean Corpuscular Hemoglobin 29.6 pg (27.0-31.0); Mean Corpuscular Volume 90.2 fl (78.0-98.0); Mean Platelet Volume 9.8 fL (7.4-10.4); Platelet Count 164 10x3/uL (130-400); RBC Distribution Width 13.6 % (11.5-14.5); Red Blood Cell (RBC) Count 3.38 mill/uL (4.20-5.40); White Blood Cell (WBC) Count 7.7 10x3/uL (4.8-10.8)
[2023-07-10] MEDS ORDERED: Ondansetron ODT 4 MG TAB ONE ×3 (11:00→13:26)
[2023-07-10] MEDS ORDERED: Morphine 4 MG/ML VIAL ONE (11:00)
[2023-07-10 11:32] LABS: ALT (SGPT) 10 U/L (8-55); AST (SGOT) 15 U/L (5-34); Alkaline Phosphatase 45 U/L (40-110); Anion Gap 13 mmol/L (10-20); BUN (Urea Nitrogen) 11 mg/dL (9.8-20.1); Bilirubin, Total 1.7 mg/dL (0.2-1.2); Calc. Creatinine Clearance 0 mL/min (70-130); Calcium 8.8 mg/dL (7.8-10.44); Carbon Dioxide 23 mmol/L (23-31); Chloride 106 mmol/L (98-107); Estimated GFR 69; Glucose 169 mg/dL (83-110); Potassium 3.7 mmol/L (3.5-5.1); Sodium 138 mmol/L (136-145)
[2023-07-10] MEDS ORDERED: Ondansetron PF 4 MG/2 ML Vial IVP PRN (13:42)
[2023-07-10] MEDS ORDERED: Ondansetron ODT 4 MG TAB PO PRN (13:42)
[2023-07-10] MEDS ORDERED: Acetaminophen 325 MG TAB PO PRN (13:42)
[2023-07-10] MEDS ORDERED: Dextrose 5% in Water 1,000 ML IV PRN (13:50)
[2023-07-10] MEDS ORDERED: Dextrose 50% Abboject 50 ML SYRINGE SLOW IVP PRN (13:50)
[2023-07-10] MEDS ORDERED: HumaLOG 300 UNITS/3 ML VIAL SC PRN ×2 (13:50)
[2023-07-10] MEDS ORDERED: Glucagon 1 MG/ML KIT IM PRN (13:50)
[2023-07-10] MEDS ORDERED: fentaNYL 50 mcg/mL 1 mL Vial SLOW IVP PRN (14:24)
[2023-07-10 17:58] VITALS: BMI 23.5
[2023-07-11] MEDS ORDERED: Lidocaine 1% (PF) 30 ML VIAL ONE (07:14)
[2023-07-11 08:55] LABS: #Eosinphils 0.2 thou/uL (0.0-0.7); #Monocytes 0.6 thou/uL (0.11-0.59); #Neutrophils 5.6 thou/uL (1.40-6.50); %Basophils 0.5 % (0.0-1.0); %Eosinophils 1.9 % (0.0-10.0); %Lymphocytes 18.7 % (21.0-51.0); %Monocytes 7.5 % (0.0-10.0); %Neutrophils 71.1 % (42.0-75.0); Hematocrit 29.7 % (36.0-47.0); Hemoglobin 9.9 g/dL (12.0-16.0); Mean Corpuscular HGB CONC 33.3 g/dL (32.0-36.0); Mean Corpuscular Hemoglobin 29.9 pg (27.0-31.0); Mean Corpuscular Volume 89.7 fl (78.0-98.0); Mean Platelet Volume 9.8 fL (7.4-10.4); Platelet Count 170 10x3/uL (130-400); RBC Distribution Width 13.6 % (11.5-14.5); Red Blood Cell (RBC) Count 3.31 mill/uL (4.20-5.40); White Blood Cell (WBC) Count 7.9 10x3/uL (4.8-10.8)
[2023-07-11] MEDS: Ezetimibe 10 MG TAB PO SCH (09:10)
[2023-07-11] MEDS: Floranex 1 GM Packet PO SCH (09:10)
[2023-07-11 09:22] LABS: Anion Gap 14 mmol/L (10-20); BUN (Urea Nitrogen) 10 mg/dL (9.8-20.1); Calc. Creatinine Clearance 51 mL/min (70-130); Calcium 9.2 mg/dL (7.8-10.44); Carbon Dioxide 24 mmol/L (23-31); Chloride 105 mmol/L (98-107); Estimated GFR 69; Glucose 131 mg/dL (83-110); Potassium 3.7 mmol/L (3.5-5.1); Sodium 139 mmol/L (136-145)
[2023-07-11] MEDS: Apixaban 5 MG TAB PO SCH (20:21)
[2023-07-11] MEDS: Carvedilol 3.125 MG TAB PO SCH (20:21)
[2023-07-12 05:57] LABS: #Eosinphils 0.1 thou/uL (0.0-0.7); #Monocytes 0.5 thou/uL (0.11-0.59); #Neutrophils 3.7 thou/uL (1.40-6.50); %Basophils 0.7 % (0.0-1.0); %Eosinophils 2.4 % (0.0-10.0); %Lymphocytes 24.6 % (21.0-51.0); %Monocytes 8.8 % (0.0-10.0); %Neutrophils 63.2 % (42.0-75.0); Hematocrit 26.6 % (36.0-47.0); Hemoglobin 8.8 g/dL (12.0-16.0); Mean Corpuscular HGB CONC 33.1 g/dL (32.0-36.0); Mean Corpuscular Hemoglobin 29.4 pg (27.0-31.0); Platelet Count 137 10x3/uL (130-400); RBC Distribution Width 13.8 % (11.5-14.5); Red Blood Cell (RBC) Count 2.99 mill/uL (4.20-5.40); White Blood Cell (WBC) Count 5.8 10x3/uL (4.8-10.8)
[2023-07-12 06:24] LABS: Anion Gap 11 mmol/L (10-20); BUN (Urea Nitrogen) 9 mg/dL (9.8-20.1); Calc. Creatinine Clearance 51 mL/min (70-130); Calcium 8.8 mg/dL (7.8-10.44); Carbon Dioxide 26 mmol/L (23-31); Chloride 104 mmol/L (98-107); Estimated GFR 69; Glucose 118 mg/dL (83-110); Potassium 3.8 mmol/L (3.5-5.1); Sodium 137 mmol/L (136-145)
[2023-07-12] MEDS: Ezetimibe 10 MG TAB PO SCH (08:08)
[2023-07-12] MEDS: Carvedilol 3.125 MG TAB PO SCH (08:08)
[2023-07-12] MEDS: Apixaban 5 MG TAB PO SCH (08:08)
[2023-07-12] MEDS: Floranex 1 GM Packet PO SCH (08:08)
[2023-07-12 14:54] VITALS: BP 130/58; TEMP 98.3
[2023-07-14] MEDS ORDERED: FLU VACC QS2023(65UP)/MF59C/PF 60 MCG/0.5 ML SYRINGE IM ONE (09:00)
== END 2023-07-12 16:00 | disposition home health service (06) | DRG 301 ==
LOC: ERS 10:10 → SURG A 13:26 → 2NO 17:54
PROVIDERS: ADMIT Hospitalist; ATTEND Emergency Medicine
PROC: 06H03DZ Insertion of Intraluminal Device into Inferior Vena Cava, Percutaneous Approach (ICD-10-PCS; principal; 2023-07-11)
PROC: B54CZZA Ultrasonography of Left Lower Extremity Veins, Guidance (ICD-10-PCS; 2023-07-11)
DX: I82.431 Acute embolism and thrombosis of right popliteal vein (principal); I48.0 Paroxysmal atrial fibrillation; I25.10 Atherosclerotic heart disease of native coronary artery without angina pectoris; Z95.0 Presence of cardiac pacemaker; I10 Essential (primary) hypertension; E11.9 Type 2 diabetes mellitus without complications; Z66 Do not resuscitate; M66.0 Rupture of popliteal cyst; Z88.5 Allergy status to narcotic agent; Z79.4 Long term (current) use of insulin; Z79.01 Long term (current) use of anticoagulants; Z79.899 Other long term (current) drug therapy; Z90.49 Acquired absence of other specified parts of digestive tract; Z90.710 Acquired absence of both cervix and uterus
CPT/HCPCS: 36415; 36416; 37191; 80048; 80053; 85025; 93923; 96372; C1769; C1880; J2001; J2270; Q0162

== ENCOUNTER 2023-08-31 14:20 | Outpatient (CLI) | payer MEDICARE, OTHER | END 2023-08-31 14:21 | disposition home or self-care (01) | LOC: ULT 14:20 | PROVIDERS: ATTEND Internal Medicine Cardiovascular Disease | DX: R22.41 Localized swelling, mass and lump, right lower limb (principal) ==

== ENCOUNTER 2023-10-15 12:03 | Outpatient (CLI) | payer MEDICARE, OTHER ==
[2023-10-15] MEDS ORDERED: Iopamidol 370 76% 100 ML VIAL ONE (15:13)
== END 2023-10-15 12:04 | disposition home or self-care (01) ==
LOC: CT 12:03
PROVIDERS: ATTEND Internal Medicine Cardiovascular Disease
DX: I48.11 Longstanding persistent atrial fibrillation (principal); I51.7 Cardiomegaly; J98.11 Atelectasis; E04.1 Nontoxic single thyroid nodule; I70.90 Unspecified atherosclerosis; N26.1 Atrophy of kidney (terminal); N28.89 Other specified disorders of kidney and ureter; Z95.828 Presence of other vascular implants and grafts; Z95.0 Presence of cardiac pacemaker; Z79.01 Long term (current) use of anticoagulants; Z98.890 Other specified postprocedural states; Z90.710 Acquired absence of both cervix and uterus
CPT/HCPCS: 71275; 74174; 82565